=== PATIENT | female | born 1940 | race Two or more races ===

== ENCOUNTER 2017-02-16 11:21 | Inpatient (IN) | payer MEDICARE, MEDICAID ==
[~2017-02-16] VITALS: Ht 165.1 cm; Wt 73.4 kg
[~2017-02-16 11:21] MED LIST: ACET-285 PO; GLIP-115 PO; LANS30CA63 PO; LIDO5DIS21 TOP; LISI2.5T47 PO; METF-372 PO; RIVA20TA PO; SIMV-8 PO; TRAM-297 PO; URSO300C4 PO
[2017-02-16 12:22] LABS: Basophils # (auto) 0 uL; Basophils % (auto) 0.3 % (0.0-2.0); CONDITION Y; Eosinophils # (auto) 0.1 uL; Eosinophils % (auto) 2.1 % (0.0-7.0); Hemoglobin 12.6 g/dL (12.2-16.2); Lymphocytes # (auto) 1.4 uL; Lymphocytes % (auto) 27.6 % (10.0-50.0); Mean Corpuscular Hgb Conc. 33.3 g/dL (32.0-36.0); Mean Corpuscular Volume 83.9 fL (80.0-100.0); Mean Platelet Volume 8.9 fL (7.4-10.4); Monocytes # (auto) 0.5 uL; Monocytes % (auto) 9.3 % (0.0-12.0); Neutrophils # (auto) 3.1 uL; Neutrophils % (auto) 60.7 % (37.0-80.0); Platelet Count (auto) 299 10^3/uL (140-450); Red Cell Distribution Width 16.4 % (11.6-16.0); White Blood Cell 5.1 10^3/uL (4.4-10.8)
[2017-02-16 12:55] LABS: Albumin 3.9 g/dL (3.4-5.0); BUN/Creatinine Ratio 27.5; Bilirubin, Total 0.4 mg/dL (0.2-1.0); Calcium 9.4 mg/dL (8.5-10.1); Potassium 4.5 mmol/L (3.5-5.1); Total Protein 7.6 g/dL (6.4-8.2)
[2017-02-16] MEDS ORDERED: SODIUM CHLORIDE 0.9% 1,000 ML IV ONE ×2 (16:56)
[2017-02-16] MEDS ORDERED: HYDROmorphone HCL 2 MG/ML VL IV ONE (17:00)
[2017-02-16] MEDS ORDERED: ONDANSETRON HCL 4 MG/2 ML VIAL IV ONE (17:00)
[2017-02-16] MEDS ORDERED: DEXTROSE (50%) 50ML SYRG IV PRN (18:30)
[2017-02-16] MEDS ORDERED: ONDANSETRON HCL 4 MG/2 ML VIAL IV PRN (18:45)
[2017-02-16] MEDS ORDERED: DOCUSATE SOD 100 MG CAP PO PRN (18:45)
[2017-02-16] MEDS ORDERED: MORPHINE SULF INJ 2 MG/ML SYRINGE 1ML IV PRN (18:45)
[2017-02-16] MEDS ORDERED: TEMAZEPAM 15 MG CAP PO PRN (18:45)
[2017-02-16] MEDS ORDERED: ACETAMINOPHEN 325 MG TAB PO PRN (18:45)
[2017-02-16 19:33] LABS: Urine Bilirubin Negative (Negative); Urine Blood Negative /uL (Negative); Urine Color Yellow (Yellow); Urine Glucose Normal (Normal); Urine Ketone Negative (Negative); Urine Nitrite Negative (Negative); Urine RBC <1 /hpf (0 - 4); Urine Urobilinogen Normal (Negative)
[2017-02-16 19:54] LABS: INR 1.09 (0.9-1.15); Prothrombin Time 11.9 sec (9.37-12.3)
[2017-02-16] MEDS: InsuLIN REG 1unit/0.01ml Soln (100units/ml) SC SCH (22:00)
[2017-02-16] MEDS: ACCU-CHEK COMFORT CURVE STRIP VI SCH (22:00)
[2017-02-16] MEDS: FAMOTIDINE 20 MG TAB PO SCH (23:23)
[2017-02-16] MEDS: SODIUM CHLOR 0.9% PF (SALINE LOCK) 10ML VIAL IV SCH (23:24)
[2017-02-16] MEDS: ATORVASTATIN 20 MG TAB PO SCH (23:24)
[2017-02-16 23:30] VITALS: BP 132/60
[2017-02-16] MEDS: HYDROcodone-ACET 5/325MG TAB PO PRN (23:38)
[2017-02-17] VITALS (7 sets, daily range): BP systolic 115–135; BP diastolic 58–72
[2017-02-17 06:05] LABS: Basophils # (auto) 0 uL; Basophils % (auto) 0.2 % (0.0-2.0); CONDITION Y; Eosinophils # (auto) 0.1 uL; Eosinophils % (auto) 2.7 % (0.0-7.0); Hematocrit 35.3 % (36.0-46.0); Hemoglobin 11.6 g/dL (12.2-16.2); Lymphocytes # (auto) 1.7 uL; Lymphocytes % (auto) 36.1 % (10.0-50.0); Mean Corpuscular Hgb Conc. 32.9 g/dL (32.0-36.0); Mean Platelet Volume 9.3 fL (7.4-10.4); Monocytes # (auto) 0.5 uL; Monocytes % (auto) 11.1 % (0.0-12.0); Neutrophils # (auto) 2.3 uL; Neutrophils % (auto) 49.9 % (37.0-80.0); Platelet Count (auto) 241 10^3/uL (140-450); Red Cell Distribution Width 16.1 % (11.6-16.0); White Blood Cell 4.6 10^3/uL (4.4-10.8)
[2017-02-17] MEDS: SODIUM CHLOR 0.9% PF (SALINE LOCK) 10ML VIAL IV SCH ×3 (06:20→21:44)
[2017-02-17] MEDS: ACCU-CHEK COMFORT CURVE STRIP VI SCH ×4 (06:44→21:44)
[2017-02-17] MEDS: glipiZIDE 5 MG TAB PO SCH (06:44)
[2017-02-17] MEDS: InsuLIN REG 1unit/0.01ml Soln (100units/ml) SC SCH ×4 (06:44→21:44)
[2017-02-17 06:46] LABS: Albumin 3.1 g/dL (3.4-5.0); BUN/Creatinine Ratio 32.4; Bilirubin, Total 0.4 mg/dL (0.2-1.0); Calcium 8.4 mg/dL (8.5-10.1); Potassium 3.9 mmol/L (3.5-5.1); Total Protein 6.2 g/dL (6.4-8.2)
[2017-02-17] MEDS: MULTIPLE VITAMIN TAB PO SCH (10:06)
[2017-02-17] MEDS: FAMOTIDINE 20 MG TAB PO SCH ×2 (10:06→21:43)
[2017-02-17] MEDS: LISINOPRIL 5 MG TAB PO SCH (10:08)
[2017-02-17] MEDS ORDERED: LORazepam 0.5 MG TAB PO PRN (17:30)
[2017-02-17] MEDS: ATORVASTATIN 20 MG TAB PO SCH (21:43)
[2017-02-17] MEDS: HYDROcodone-ACET 5/325MG TAB PO PRN (21:44)
[2017-02-18 05:30] VITALS: BP 125/60
[2017-02-18] MEDS: SODIUM CHLOR 0.9% PF (SALINE LOCK) 10ML VIAL IV SCH (05:33)
[2017-02-18] MEDS: glipiZIDE 5 MG TAB PO SCH (06:39)
[2017-02-18] MEDS: ACCU-CHEK COMFORT CURVE STRIP VI SCH ×2 (06:39→11:52)
[2017-02-18] MEDS: InsuLIN REG 1unit/0.01ml Soln (100units/ml) SC SCH ×2 (06:39→12:04)
[2017-02-18 08:00] VITALS: BP 131/69
[2017-02-18 09:01] VITALS: BP 131/69
[2017-02-18] MEDS: MULTIPLE VITAMIN TAB PO SCH (11:41)
[2017-02-18] MEDS: FAMOTIDINE 20 MG TAB PO SCH (11:41)
[2017-02-18] MEDS: HYDROcodone-ACET 5/325MG TAB PO PRN (11:42)
[2017-02-18] MEDS: LISINOPRIL 5 MG TAB PO SCH (11:43)
[2017-02-18 12:10] VITALS: BP 125/71
== END 2017-02-18 13:30 | disposition home or self-care (01) | DRG 382 ==
LOC: ER 11:21 → OVERFLOW 11:22 → WEST WING 22:50
PROVIDERS: ADMIT Internal Medicine; ATTEND Internal Medicine
DX: C50.312 Malignant neoplasm of lower-inner quadrant of left female breast (principal); I11.9 Hypertensive heart disease without heart failure; E11.9 Type 2 diabetes mellitus without complications; E07.89 Other specified disorders of thyroid; N64.4 Mastodynia; E78.5 Hyperlipidemia, unspecified; Z79.899 Other long term (current) drug therapy; Z85.3 Personal history of malignant neoplasm of breast; Z79.84 Long term (current) use of oral hypoglycemic drugs; Z83.3 Family history of diabetes mellitus; Z90.49 Acquired absence of other specified parts of digestive tract
CPT/HCPCS: 36415; 71250; 80053; 81001; 82962; 83036; 84443; 85025; 85610; 86304; 96360; J1815

== ENCOUNTER 2018-03-12 08:55 | Emergency (ER) | payer MEDICARE, MEDICAID ==
[~2018-03-12] VITALS: Ht 160 cm; Wt 68.9 kg
[2018-03-12 09:51] LABS: Basophils # (auto) 0 uL; Basophils % (auto) 0.6 % (0.0-2.0); Eosinophils # (auto) 0.1 uL; Eosinophils % (auto) 1.2 % (0.0-7.0); Hematocrit 39.5 % (36.0-46.0); Hemoglobin 13.1 g/dL (12.2-16.2); Lymphocytes # (auto) 1.3 uL; Lymphocytes % (auto) 27.8 % (10.0-50.0); Mean Corpuscular Hemoglobin 28.8 pg (28.0-32.0); Mean Corpuscular Hgb Conc. 33.2 g/dL (32.0-36.0); Mean Corpuscular Volume 86.7 fL (80.0-100.0); Monocytes # (auto) 0.5 uL; Monocytes % (auto) 10.1 % (0.0-12.0); Neutrophils # (auto) 2.8 uL; Neutrophils % (auto) 60.3 % (37.0-80.0); Nucleated Red Blood Cells % 0.1 %; Platelet Count (auto) 225 10^3/uL (140-450); Red Blood Cells 4.56 10^6/uL (4.0-5.20); Red Cell Distribution Width 15.3 % (11.8-14.3); White Blood Cell 4.7 10^3/uL (4.4-10.8)
[2018-03-12 10:02] LABS: Albumin 3.7 g/dL (3.4-5.0); Bilirubin, Total 0.5 mg/dL (0.2-1.0); Calcium 8.8 mg/dL (8.5-10.1); Potassium 4.1 mmol/L (3.5-5.1); Total Protein 7.2 g/dL (6.4-8.2)
[2018-03-12 10:11] LABS: Urine Bacteria NONE SEEN /hpf (None Seen); Urine Blood Negative /uL (Negative); Urine Mucus FEW (None Seen); Urine Specific Gravity 1.021 (1.001-1.035); Urine WBC 5 /hpf (0 - 5)
[2018-03-12 11:40] VITALS: BP 127/57
== END 2018-03-12 12:10 | disposition home or self-care (01) ==
LOC: ER 08:55
DX: N39.0 Urinary tract infection, site not specified (principal); G62.9 Polyneuropathy, unspecified; M19.90 Unspecified osteoarthritis, unspecified site; I10 Essential (primary) hypertension; E78.5 Hyperlipidemia, unspecified; E11.9 Type 2 diabetes mellitus without complications; Z90.49 Acquired absence of other specified parts of digestive tract; Z79.899 Other long term (current) drug therapy; Z79.84 Long term (current) use of oral hypoglycemic drugs
CPT/HCPCS: 36415; 80053; 81001; 85025; 93005

== ENCOUNTER → 2018-07-29 | Outpatient (CLI) | payer MEDICARE, MEDICAID ==
[~2018-07-29] MED LIST changes: +PANT40TA2 PO; +SITA50TA PO
[2018-07-29 12:38] LABS: Basophils # (auto) 0.1 uL; Basophils % (auto) 0.9 % (0.0-2.0); Eosinophils # (auto) 0.1 uL; Eosinophils % (auto) 1.2 % (0.0-7.0); Hematocrit 41.9 % (36.0-46.0); Hemoglobin 13.7 g/dL (12.2-16.2); Lymphocytes # (auto) 1.7 uL; Mean Corpuscular Hemoglobin 28.7 pg (28.0-32.0); Mean Corpuscular Hgb Conc. 32.8 g/dL (32.0-36.0); Mean Corpuscular Volume 87.4 fL (80.0-100.0); Monocytes # (auto) 0.5 uL; Monocytes % (auto) 7.8 % (0.0-12.0); Neutrophils # (auto) 3.7 uL; Neutrophils % (auto) 62.1 % (37.0-80.0); Platelet Count (auto) 268 10^3/uL (140-450); Red Blood Cells 4.79 10^6/uL (4.0-5.20); Red Cell Distribution Width 13.8 % (11.8-14.3)
[2018-07-29 13:18] LABS: Albumin 3.8 g/dL (3.4-5.0); Potassium 4.1 mmol/L (3.5-5.1)
[2018-07-29 13:21] LABS: BUN/Creatinine Ratio 26.5; Bilirubin, Total 0.3 mg/dL (0.2-1.0); Total Protein 7.5 g/dL (6.4-8.2)
== END | disposition home or self-care (01) ==
LOC: LAB 12:09
PROVIDERS: ATTEND Internal Medicine
DX: C50.212 Malignant neoplasm of upper-inner quadrant of left female breast (principal)
CPT/HCPCS: 36415; 80053; 83615; 85025; 86300

== ENCOUNTER 2018-08-09 18:25 | Inpatient (IN) | payer MEDICARE, MEDICAID | END 2018-08-14 15:30 | disposition home or self-care (01) | LOC: TELE-EAST 08-11 09:51 → ER 18:25 → TELE-EAST 08-14 09:00 → OVERFLOW 23:05 → EAST 08-10 21:21 | PROC: 0DJD8ZZ Inspection of Lower Intestinal Tract, Via Natural or Artificial Opening Endoscopic (ICD-10-PCS; principal; 2018-08-13 10:40) | DX: A41.9 Sepsis, unspecified organism (principal); E11.65 Type 2 diabetes mellitus with hyperglycemia; D70.1 Agranulocytosis secondary to cancer chemotherapy; E87.1 Hypo-osmolality and hyponatremia; K57.32 Diverticulitis of large intestine without perforation or abscess without bleeding; C50.912 Malignant neoplasm of unspecified site of left female breast; N28.1 Cyst of kidney, acquired; R10.9 Unspecified abdominal pain; D25.9 Leiomyoma of uterus, unspecified; K52.9 Noninfective gastroenteritis and colitis, unspecified; I10 Essential (primary) hypertension; T45.1X5A Adverse effect of antineoplastic and immunosuppressive drugs, initial encounter ==

== ENCOUNTER → 2018-08-16 | Outpatient (CLI) | payer MEDICARE, MEDICAID ==
[~2018-08-16] MED LIST changes: -ACET-285 PO; -LANS30CA63 PO; -LIDO5DIS21 TOP; -TRAM-297 PO; -URSO300C4 PO
[2018-08-16 10:41] LABS: Hematocrit 34.9 % (36.0-46.0); Hemoglobin 11.6 g/dL (12.2-16.2); Mean Corpuscular Hemoglobin 29.1 pg (28.0-32.0); Mean Corpuscular Hgb Conc. 33.1 g/dL (32.0-36.0); Mean Corpuscular Volume 87.8 fL (80.0-100.0); Platelet Count (auto) 142 10^3/uL (140-450); Red Blood Cells 3.97 10^6/uL (4.0-5.20); Red Cell Distribution Width 14.5 % (11.8-14.3); White Blood Cell 5.3 10^3/uL (4.4-10.8)
[2018-08-16 11:07] LABS: Basophils % (manual) 0 (0.0-2.0); Blast Cells 0; Eosinophils % (manual) 0 (0-7); Promyelocytes % 0
[2018-08-16 11:41] LABS: Chloride 104 mmol/L (98-107); Potassium 3.8 mmol/L (3.5-5.1); Sodium 135 mmol/L (136-145)
[2018-08-16 11:53] LABS: Alanine Aminotransferase 17 U/L (13-56); Albumin 2.6 g/dL (3.4-5.0); Alkaline Phosphatase 71 U/L (45-117); Anion Gap 7 (5-15); Aspartate Aminotransferase 18 U/L (15-37); BUN/Creatinine Ratio 12.5; Bilirubin, Total 0.3 mg/dL (0.2-1.0); Blood Urea Nitrogen 7 mg/dL (7-18); Calcium 7.9 mg/dL (8.5-10.1); Carbon Dioxide 24 mmol/L (21-32); GFR African American > 60 mL/min; GFR Non-African American > 60 mL/min; Glucose 325 mg/dL (74-106); Lactate Dehydrogenase 231 U/L (84-246); Total Protein 5.5 g/dL (6.4-8.2)
[2018-08-16 14:05] LABS: Band Neutrophils % (manual) 7; Lymphocytes % (manual) 29 (10.0-50.0); Metamyelocytes % 4; Monocytes % (manual) 17 (0-12); Myelocytes % 2; Reactive Lymphocytes 1
== END | disposition home or self-care (01) ==
LOC: LAB 09:39
PROVIDERS: ATTEND Internal Medicine
DX: C50.212 Malignant neoplasm of upper-inner quadrant of left female breast (principal)
CPT/HCPCS: 36415; 80053; 83615; 85007; 85027

== ENCOUNTER → 2018-08-24 | Outpatient (CLI) | payer MEDICARE, MEDICAID ==
[2018-08-24 10:12] LABS: Basophils # (auto) 0 uL; Eosinophils # (auto) 0 uL; Eosinophils % (auto) 0.1 % (0.0-7.0); Hematocrit 38.3 % (36.0-46.0); Hemoglobin 12.8 g/dL (12.2-16.2); Lymphocytes # (auto) 0.7 uL; Lymphocytes % (auto) 16.4 % (10.0-50.0); Mean Corpuscular Hemoglobin 29.5 pg (28.0-32.0); Mean Corpuscular Hgb Conc. 33.4 g/dL (32.0-36.0); Mean Corpuscular Volume 88.3 fL (80.0-100.0); Monocytes # (auto) 0.3 uL; Monocytes % (auto) 7.7 % (0.0-12.0); Neutrophils # (auto) 3.4 uL; Neutrophils % (auto) 74.8 % (37.0-80.0); Platelet Count (auto) 418 10^3/uL (140-450); Red Blood Cells 4.34 10^6/uL (4.0-5.20); White Blood Cell 4.5 10^3/uL (4.4-10.8)
[2018-08-24 12:38] LABS: Chloride 103 mmol/L (98-107); Potassium 4.8 mmol/L (3.5-5.1); Sodium 137 mmol/L (136-145)
[2018-08-24 12:46] LABS: Alanine Aminotransferase 22 U/L (13-56); Albumin 3.2 g/dL (3.4-5.0); Alkaline Phosphatase 52 U/L (45-117); Anion Gap 7 (5-15); Aspartate Aminotransferase 19 U/L (15-37); BUN/Creatinine Ratio 25.5; Bilirubin, Total 0.3 mg/dL (0.2-1.0); Blood Urea Nitrogen 14 mg/dL (7-18); Calcium 8.9 mg/dL (8.5-10.1); Carbon Dioxide 27 mmol/L (21-32); GFR African American > 60 mL/min; GFR Non-African American > 60 mL/min; Glucose 328 mg/dL (74-106); Lactate Dehydrogenase 182 U/L (84-246); Total Protein 6.6 g/dL (6.4-8.2)
== END | disposition home or self-care (01) ==
LOC: LAB 09:50
PROVIDERS: ATTEND Internal Medicine
DX: C50.212 Malignant neoplasm of upper-inner quadrant of left female breast (principal)
CPT/HCPCS: 36415; 80053; 83615; 85025

== ENCOUNTER → 2018-09-13 | Outpatient (CLI) | payer MEDICARE, MEDICAID ==
[2018-09-13 11:54] LABS: Basophils # (auto) 0 uL; Basophils % (auto) 0.8 % (0.0-2.0); Eosinophils # (auto) 0 uL; Eosinophils % (auto) 0.1 % (0.0-7.0); Hematocrit 37.5 % (36.0-46.0); Hemoglobin 12.3 g/dL (12.2-16.2); Lymphocytes # (auto) 0.8 uL; Lymphocytes % (auto) 15.1 % (10.0-50.0); Mean Corpuscular Hemoglobin 28.8 pg (28.0-32.0); Mean Corpuscular Hgb Conc. 32.7 g/dL (32.0-36.0); Monocytes # (auto) 0.5 uL; Monocytes % (auto) 8.6 % (0.0-12.0); Neutrophils # (auto) 4.1 uL; Neutrophils % (auto) 75.4 % (37.0-80.0); Nucleated Red Blood Cells % 0.1 %; Platelet Count (auto) 233 10^3/uL (140-450); Red Blood Cells 4.26 10^6/uL (4.0-5.20); Red Cell Distribution Width 16.7 % (11.8-14.3); White Blood Cell 5.4 10^3/uL (4.4-10.8)
[2018-09-13 12:21] LABS: Potassium 4.3 mmol/L (3.5-5.1)
[2018-09-13 12:32] LABS: Albumin 3.2 g/dL (3.4-5.0); Bilirubin, Total 0.5 mg/dL (0.2-1.0); Calcium 8.7 mg/dL (8.5-10.1); Total Protein 6.4 g/dL (6.4-8.2)
== END | disposition home or self-care (01) ==
LOC: LAB 10:58
PROVIDERS: ATTEND Internal Medicine
DX: C50.212 Malignant neoplasm of upper-inner quadrant of left female breast (principal)
CPT/HCPCS: 36415; 80053; 83615; 85025

== ENCOUNTER → 2018-10-04 | Outpatient (CLI) | payer MEDICARE, MEDICAID ==
[2018-10-04 11:39] LABS: Basophils # (auto) 0 uL; Eosinophils # (auto) 0 uL; Eosinophils % (auto) 0.1 % (0.0-7.0); Hematocrit 34.7 % (36.0-46.0); Hemoglobin 11.3 g/dL (12.2-16.2); Lymphocytes # (auto) 0.7 uL; Lymphocytes % (auto) 13.5 % (10.0-50.0); Mean Corpuscular Hemoglobin 28.5 pg (28.0-32.0); Mean Corpuscular Hgb Conc. 32.7 g/dL (32.0-36.0); Mean Corpuscular Volume 87.1 fL (80.0-100.0); Monocytes # (auto) 0.6 uL; Monocytes % (auto) 11.1 % (0.0-12.0); Neutrophils # (auto) 3.7 uL; Neutrophils % (auto) 74.3 % (37.0-80.0); Nucleated Red Blood Cells % 0.1 %; Platelet Count (auto) 192 10^3/uL (140-450); Red Blood Cells 3.98 10^6/uL (4.0-5.20); Red Cell Distribution Width 17.3 % (11.8-14.3)
[2018-10-04 11:51] LABS: Potassium 4.3 mmol/L (3.5-5.1)
[2018-10-04 12:19] LABS: Albumin 2.8 g/dL (3.4-5.0); Bilirubin, Total 0.4 mg/dL (0.2-1.0); Calcium 8.9 mg/dL (8.5-10.1); Total Protein 6.2 g/dL (6.4-8.2)
== END | disposition home or self-care (01) ==
LOC: LAB 09:30
PROVIDERS: ATTEND Internal Medicine
DX: C50.212 Malignant neoplasm of upper-inner quadrant of left female breast (principal)
CPT/HCPCS: 36415; 80053; 83615; 85025

== ENCOUNTER → 2018-10-20 | Outpatient (CLI) | payer MEDICARE, MEDICAID ==
[2018-10-20 16:11] LABS: Alanine Aminotransferase 23 U/L (13-56); Albumin 2.5 g/dL (3.4-5.0); Anion Gap 8 (5-15); Aspartate Aminotransferase 29 U/L (15-37); BUN/Creatinine Ratio 24.6; Basophils # (auto) 0 uL; Basophils % (auto) 0.2 % (0.0-2.0); Blood Urea Nitrogen 17 mg/dL (7-18); Calcium 8.5 mg/dL (8.5-10.1); Carbon Dioxide 22 mmol/L (21-32); Chloride 98 mmol/L (98-107); Eosinophils # (auto) 0 uL; Eosinophils % (auto) 0.1 % (0.0-7.0); GFR African American 106 mL/min; GFR Non-African American 88 mL/min; Glucose 332 mg/dL (74-106); Hemoglobin 12.8 g/dL (12.2-16.2); Lymphocytes # (auto) 0.7 uL; Lymphocytes % (auto) 8.3 % (10.0-50.0); Mean Corpuscular Hemoglobin 28.3 pg (28.0-32.0); Mean Corpuscular Hgb Conc. 32.8 g/dL (32.0-36.0); Mean Corpuscular Volume 86.3 fL (80.0-100.0); Monocytes # (auto) 0.5 uL; Monocytes % (auto) 6.3 % (0.0-12.0); Neutrophils # (auto) 7.3 uL; Neutrophils % (auto) 85.1 % (37.0-80.0); Platelet Count (auto) 121 10^3/uL (140-450); Potassium 5.3 mmol/L (3.5-5.1); Red Blood Cells 4.52 10^6/uL (4.0-5.20); Red Cell Distribution Width 16.9 % (11.8-14.3); Sodium 128 mmol/L (136-145); White Blood Cell 8.6 10^3/uL (4.4-10.8)
[2018-10-20 16:14] LABS: Alkaline Phosphatase 77 U/L (45-117); Bilirubin, Total 0.5 mg/dL (0.2-1.0); Total Protein 6.1 g/dL (6.4-8.2)
== END | disposition home or self-care (01) ==
LOC: LAB 15:41
PROVIDERS: ATTEND Internal Medicine
DX: C50.212 Malignant neoplasm of upper-inner quadrant of left female breast (principal)
CPT/HCPCS: 36415; 80053; 85025

== ENCOUNTER → 2018-11-09 | Outpatient (CLI) | payer MEDICARE, MEDICAID ==
[2018-11-09 10:28] LABS: Basophils # (auto) 0 uL; Basophils % (auto) 0.3 % (0.0-2.0); Eosinophils # (auto) 0.1 uL; Eosinophils % (auto) 2.2 % (0.0-7.0); Hematocrit 34.2 % (36.0-46.0); Hemoglobin 11.1 g/dL (12.2-16.2); Lymphocytes # (auto) 0.9 uL; Lymphocytes % (auto) 21.8 % (10.0-50.0); Mean Corpuscular Hemoglobin 27.6 pg (28.0-32.0); Mean Corpuscular Hgb Conc. 32.4 g/dL (32.0-36.0); Mean Corpuscular Volume 85.1 fL (80.0-100.0); Monocytes # (auto) 0.4 uL; Monocytes % (auto) 10.8 % (0.0-12.0); Neutrophils # (auto) 2.6 uL; Neutrophils % (auto) 64.9 % (37.0-80.0); Platelet Count (auto) 239 10^3/uL (140-450); Red Blood Cells 4.01 10^6/uL (4.0-5.20); Red Cell Distribution Width 16.7 % (11.8-14.3); White Blood Cell 3.9 10^3/uL (4.4-10.8)
[2018-11-09 10:52] LABS: Potassium 4.2 mmol/L (3.5-5.1)
[2018-11-09 11:06] LABS: BUN/Creatinine Ratio 31.4; Bilirubin, Total 0.4 mg/dL (0.2-1.0); Calcium 8.3 mg/dL (8.5-10.1); Total Protein 6.1 g/dL (6.4-8.2)
== END | disposition home or self-care (01) ==
LOC: LAB 09:18
PROVIDERS: ATTEND Internal Medicine
DX: C50.212 Malignant neoplasm of upper-inner quadrant of left female breast (principal)
CPT/HCPCS: 36415; 80053; 83615; 85025; 86300

== ENCOUNTER → 2018-11-18 | Outpatient (CLI) | payer MEDICARE, MEDICAID ==
[2018-11-18 11:19] LABS: Basophils # (auto) 0 uL; Lymphocytes # (auto) 0.8 uL; Monocytes # (auto) 0.4 uL; White Blood Cell 3.3 10^3/uL (4.4-10.8)
[2018-11-18 11:23] LABS: Basophils % (auto) 0.2 % (0.0-2.0); Eosinophils # (auto) 0 uL; Eosinophils % (auto) 1.5 % (0.0-7.0); Hemoglobin 11.2 g/dL (12.2-16.2); Lymphocytes % (auto) 24.7 % (10.0-50.0); Mean Corpuscular Hgb Conc. 32.1 g/dL (32.0-36.0); Mean Corpuscular Volume 84.1 fL (80.0-100.0); Monocytes % (auto) 11.2 % (0.0-12.0); Neutrophils % (auto) 62.4 % (37.0-80.0); Nucleated Red Blood Cells % 0.1 %; Platelet Count (auto) 179 10^3/uL (140-450); Red Blood Cells 4.15 10^6/uL (4.0-5.20); Red Cell Distribution Width 16.2 % (11.8-14.3)
[2018-11-18 11:51] LABS: Potassium 4.1 mmol/L (3.5-5.1)
[2018-11-18 11:57] LABS: Albumin 3.2 g/dL (3.4-5.0); Calcium 8.5 mg/dL (8.5-10.1)
[2018-11-18 12:03] LABS: BUN/Creatinine Ratio 21.2; Bilirubin, Total 0.2 mg/dL (0.2-1.0); Total Protein 6.5 g/dL (6.4-8.2)
== END | disposition home or self-care (01) ==
LOC: LAB 10:31
PROVIDERS: ATTEND Internal Medicine
DX: C50.212 Malignant neoplasm of upper-inner quadrant of left female breast (principal)
CPT/HCPCS: 36415; 80053; 83615; 85025

== ENCOUNTER → 2019-03-10 | Outpatient (CLI) | payer MEDICARE, MEDICAID ==
[~2019-03-10] MED LIST changes: +ANAS1TAB7 PO; -GLIP-115 PO; +GLIP5TAB12 PO
[2019-03-10 16:42] LABS: Basophils # (auto) 0 uL; Basophils % (auto) 0.2 % (0.0-2.0); Eosinophils # (auto) 0.1 uL; Eosinophils % (auto) 2.4 % (0.0-7.0); Hematocrit 30.1 % (36.0-46.0); Hemoglobin 10.1 g/dL (12.2-16.2); Lymphocytes # (auto) 0.8 uL; Lymphocytes % (auto) 22.4 % (10.0-50.0); Mean Corpuscular Hemoglobin 27.4 pg (28.0-32.0); Mean Corpuscular Hgb Conc. 33.4 g/dL (32.0-36.0); Mean Corpuscular Volume 82.3 fL (80.0-100.0); Monocytes # (auto) 0.3 uL; Monocytes % (auto) 9.1 % (0.0-12.0); Neutrophils # (auto) 2.4 uL; Neutrophils % (auto) 65.9 % (37.0-80.0); Nucleated Red Blood Cells % 0.1 %; Platelet Count (auto) 184 10^3/uL (140-450); Red Blood Cells 3.66 10^6/uL (4.0-5.20); Red Cell Distribution Width 18.7 % (11.8-14.3); White Blood Cell 3.6 10^3/uL (4.4-10.8)
[2019-03-10 16:57] LABS: % Iron Saturation 19.6 % (15-50); Albumin 3.6 g/dL (3.4-5.0); Calcium 8.5 mg/dL (8.5-10.1); Potassium 4.3 mmol/L (3.5-5.1)
[2019-03-10 17:00] LABS: BUN/Creatinine Ratio 28.2; Bilirubin, Total 0.3 mg/dL (0.2-1.0); Total Protein 7.1 g/dL (6.4-8.2)
[2019-03-10 17:05] LABS: Ferritin 32.3 ng/mL (10-322); Folate (Folic Acid) 21.78 ng/mL (5.38-24)
[2019-03-10 17:08] LABS: Urine Bacteria NONE SEEN /hpf (None Seen); Urine Blood 2+ /uL (Negative); Urine Specific Gravity 1.015 (1.001-1.035); Urine WBC 6 /hpf (0 - 5)
== END | disposition home or self-care (01) ==
LOC: LAB 16:11
PROVIDERS: ATTEND Internal Medicine
DX: C50.212 Malignant neoplasm of upper-inner quadrant of left female breast (principal)
CPT/HCPCS: 36415; 80053; 81001; 82607; 82728; 82746; 83540; 83550; 83615; 85025; 86300; 86301

== ENCOUNTER 2019-04-24 21:13 | Emergency (ER) | payer MEDICARE, MEDICAID ==
[~2019-04-24] VITALS: Ht 165.1 cm; Wt 68.9 kg
[2019-04-24 22:07] LABS: Hematocrit 33.8 % (36.0-46.0); Hemoglobin 11.4 g/dL (12.2-16.2); Mean Corpuscular Hemoglobin 29.6 pg (28.0-32.0); Mean Corpuscular Hgb Conc. 33.8 g/dL (32.0-36.0); Mean Corpuscular Volume 87.6 fL (80.0-100.0); Platelet Count (auto) 182 10^3/uL (140-450); Red Blood Cells 3.86 10^6/uL (4.0-5.20); Red Cell Distribution Width 17.6 % (11.8-14.3); White Blood Cell 2.8 10^3/uL (4.4-10.8)
[2019-04-24 22:09] LABS: Basophils % (manual) 0 (0.0-2.0); Blast Cells 0; Metamyelocytes % 0; Myelocytes % 0; Promyelocytes % 0; Reactive Lymphocytes 0
[2019-04-24 22:18] LABS: INR 1.01 (0.9-1.15)
[2019-04-24 22:23] LABS: Anion Gap 10 (5-15); Blood Urea Nitrogen 28 mg/dL (7-18); Calcium 9.5 mg/dL (8.5-10.1); Carbon Dioxide 26 mmol/L (21-32); Chloride 103 mmol/L (98-107); Glucose 158 mg/dL (74-106); Magnesium 1.7 mg/dL (1.6-2.6); Potassium 4.5 mmol/L (3.5-5.1); Sodium 139 mmol/L (136-145)
[2019-04-24 22:24] LABS: Urine Amorphous Crystal FEW /hpf (None Seen); Urine Bacteria FEW /hpf (None Seen); Urine Blood 3+ /uL (Negative); Urine Specific Gravity 1.013 (1.001-1.035); Urine WBC 3 /hpf (0 - 5)
[2019-04-24 22:29] LABS: Alanine Aminotransferase 34 U/L (13-56); Alkaline Phosphatase 47 U/L (45-117); Aspartate Aminotransferase 22 U/L (15-37); BUN/Creatinine Ratio 20.7; Bilirubin, Total 0.4 mg/dL (0.2-1.0); GFR African American 49 mL/min; GFR Non-African American 40 mL/min; Total Protein 7.2 g/dL (6.4-8.2)
[2019-04-24 22:43] LABS: Band Neutrophils % (manual) 2; Eosinophils % (manual) 2 (0-7); Lymphocytes % (manual) 21 (10.0-50.0); Monocytes % (manual) 17 (0-12)
[2019-04-25] MEDS ORDERED: MORPHINE SULFATE 4 MG/ML SYR/VIAL IM ONE (02:30)
[2019-04-25] MEDS ORDERED: ONDANSETRON ODT 4 MG TAB PO ONE (02:30)
[2019-04-25 02:51] VITALS: BP 142/58
[2019-04-25] MEDS ORDERED: HYDROcodone-ACET 5/325MG TAB PO ONE (03:00)
== END 2019-04-25 03:24 | disposition home or self-care (01) ==
LOC: ER 21:13
DX: B02.9 Zoster without complications (principal); M19.90 Unspecified osteoarthritis, unspecified site; E11.9 Type 2 diabetes mellitus without complications; K21.9 Gastro-esophageal reflux disease without esophagitis; E78.5 Hyperlipidemia, unspecified; I10 Essential (primary) hypertension; Z88.5 Allergy status to narcotic agent; Z79.899 Other long term (current) drug therapy; Z79.84 Long term (current) use of oral hypoglycemic drugs; Z90.49 Acquired absence of other specified parts of digestive tract
CPT/HCPCS: 36415; 70450; 71046; 80053; 81001; 83735; 84484; 85007; 85027; 85610; 85730; 93005; 99284; J2270; Q0162

== ENCOUNTER 2019-07-02 02:46 | Emergency (ER) | payer MEDICARE, MEDICAID ==
[~2019-07-02] VITALS: Ht 165.1 cm; Wt 72.6 kg
[2019-07-02 03:05] VITALS: BP 140/63
== END 2019-07-02 05:53 | disposition left against medical advice (07) ==
LOC: ER 02:50
DX: R11.10 Vomiting, unspecified (principal); R42 Dizziness and giddiness; Z53.21 Procedure and treatment not carried out due to patient leaving prior to being seen by health care provider
CPT/HCPCS: 93005

== ENCOUNTER → 2019-07-19 | Outpatient (CLI) | payer MEDICARE, MEDICAID ==
[2019-07-19 13:55] LABS: Basophils # (auto) 0 uL; Basophils % (auto) 0.2 % (0.0-2.0); Eosinophils # (auto) 0.1 uL; Eosinophils % (auto) 1.9 % (0.0-7.0); Hematocrit 34.6 % (36.0-46.0); Hemoglobin 11.7 g/dL (12.2-16.2); Lymphocytes # (auto) 0.8 uL; Lymphocytes % (auto) 20.4 % (10.0-50.0); Mean Corpuscular Hemoglobin 31.7 pg (28.0-32.0); Mean Corpuscular Hgb Conc. 33.7 g/dL (32.0-36.0); Mean Corpuscular Volume 93.9 fL (80.0-100.0); Monocytes # (auto) 0.4 uL; Monocytes % (auto) 8.9 % (0.0-12.0); Neutrophils # (auto) 2.9 uL; Neutrophils % (auto) 68.6 % (37.0-80.0); Platelet Count (auto) 273 10^3/uL (140-450); Red Blood Cells 3.68 10^6/uL (4.0-5.20); Red Cell Distribution Width 14.1 % (11.8-14.3); White Blood Cell 4.2 10^3/uL (4.4-10.8)
[2019-07-19 14:43] LABS: Potassium 4.1 mmol/L (3.5-5.1)
[2019-07-19 14:53] LABS: Albumin 3.6 g/dL (3.4-5.0); BUN/Creatinine Ratio 27.1; Bilirubin, Total 0.3 mg/dL (0.2-1.0); Calcium 9.3 mg/dL (8.5-10.1); Total Protein 7.5 g/dL (6.4-8.2)
== END | disposition home or self-care (01) ==
LOC: LAB 13:09
PROVIDERS: ATTEND Internal Medicine
DX: C50.212 Malignant neoplasm of upper-inner quadrant of left female breast (principal)
CPT/HCPCS: 36415; 80053; 83615; 85025; 86300

== ENCOUNTER → 2019-12-06 | Outpatient (CLI) | payer MEDICARE, MEDICAID ==
[2019-12-06 13:41] LABS: Basophils # (auto) 0 10 ^3/uL (0-0.2); Basophils % (auto) 0.3 % (0.0-2.0); Eosinophils # (auto) 0.1 10 ^3/uL (0-0.8); Eosinophils % (auto) 1.1 % (0.0-7.0); Hematocrit 37.9 % (36.0-46.0); Hemoglobin 12.2 g/dL (12.2-16.2); Lymphocytes # (auto) 1.1 10 ^3/uL (0.4-5.4); Lymphocytes % (auto) 22.1 % (10.0-50.0); Mean Corpuscular Hemoglobin 29.5 pg (28.0-32.0); Mean Corpuscular Hgb Conc. 32.3 g/dL (32.0-36.0); Mean Corpuscular Volume 91.3 fL (80.0-100.0); Monocytes # (auto) 0.4 10 ^3/uL (0-1.3); Monocytes % (auto) 8.3 % (0.0-12.0); Neutrophils # (auto) 3.3 10 ^3/uL (1.6-8.6); Neutrophils % (auto) 68.2 % (37.0-80.0); Platelet Count (auto) 209 10^3/uL (140-450); Red Blood Cells 4.15 10^6/uL (4.0-5.20); Red Cell Distribution Width 13.8 % (11.8-14.3); White Blood Cell 4.9 10^3/uL (4.4-10.8)
[2019-12-06 14:48] LABS: Albumin 3.6 g/dL (3.4-5.0); Calcium 9.3 mg/dL (8.5-10.1); Potassium 4.3 mmol/L (3.5-5.1)
[2019-12-06 14:51] LABS: BUN/Creatinine Ratio 27.3; Bilirubin, Total 0.4 mg/dL (0.2-1.0); Total Protein 7.1 g/dL (6.4-8.2)
== END | disposition home or self-care (01) ==
LOC: LAB 13:25
PROVIDERS: ATTEND Internal Medicine
DX: C50.212 Malignant neoplasm of upper-inner quadrant of left female breast (principal)
CPT/HCPCS: 36415; 80053; 83615; 85025; 86300

== ENCOUNTER 2021-09-23 14:05 | Emergency (ER) | payer MEDICARE, MEDICAID ==
[~2021-09-23] VITALS: Ht 162.6 cm; Wt 65.3 kg
[2021-09-23 14:30] VITALS: BP 136/61
== END 2021-09-23 17:05 | disposition left against medical advice (07) ==
LOC: ER 14:05
DX: M79.662 Pain in left lower leg (principal); M79.661 Pain in right lower leg; Z53.21 Procedure and treatment not carried out due to patient leaving prior to being seen by health care provider

== ENCOUNTER 2021-10-06 18:30 | Emergency (ER) | payer MEDICARE, MEDICAID ==
[~2021-10-06] VITALS: Ht 162.6 cm; Wt 72.6 kg
[2021-10-06 18:32] VITALS: BP 137/73
== END 2021-10-06 23:01 | disposition home or self-care (01) ==
LOC: ER 18:32
DX: S16.1XXA Strain of muscle, fascia and tendon at neck level, initial encounter (principal); S00.83XA Contusion of other part of head, initial encounter; E11.9 Type 2 diabetes mellitus without complications; K21.9 Gastro-esophageal reflux disease without esophagitis; E78.5 Hyperlipidemia, unspecified; I10 Essential (primary) hypertension; Z90.49 Acquired absence of other specified parts of digestive tract; W18.39XA Other fall on same level, initial encounter; Y93.89 Activity, other specified; Y92.89 Other specified places as the place of occurrence of the external cause; Y99.8 Other external cause status
CPT/HCPCS: 70450; 72125; 93005

== ENCOUNTER 2022-07-22 09:07 | Emergency (ER) | payer MEDICARE, MEDICAID ==
[~2022-07-22] VITALS: Ht 157.5 cm; Wt 65.5 kg
[2022-07-22] MEDS ORDERED: ACETAMINOPHEN 500 MG TAB PO ONE (10:15)
[2022-07-22] MEDS ORDERED: KETOROLAC TROMETH 30 MG/ML 1ML VIAL IM ONE (11:45)
[2022-07-22 12:57] VITALS: BP 108/60
[2022-07-22] MEDS ORDERED: IBUP600T28 PO (13:58)
[2022-07-22] MEDS ORDERED: LIDO5DIS21 TOP (13:59)
== END 2022-07-22 14:14 | disposition home or self-care (01) ==
LOC: ER 09:07
DX: S83.92XA Sprain of unspecified site of left knee, initial encounter (principal); M51.36 Other intervertebral disc degeneration, lumbar region; E11.8 Type 2 diabetes mellitus with unspecified complications; K21.9 Gastro-esophageal reflux disease without esophagitis; I10 Essential (primary) hypertension; Z88.5 Allergy status to narcotic agent; Z79.899 Other long term (current) drug therapy; Z79.84 Long term (current) use of oral hypoglycemic drugs; Z90.49 Acquired absence of other specified parts of digestive tract; W19.XXXA Unspecified fall, initial encounter; Y93.89 Activity, other specified; Y92.89 Other specified places as the place of occurrence of the external cause; Y99.8 Other external cause status
CPT/HCPCS: 72110; 72131; 73562; 93971; 96372; 99284; J1885

== ENCOUNTER 2023-04-28 20:51 | Emergency (ER) | payer MEDICARE, MEDICAID ==
[~2023-04-28] VITALS: Ht 165.1 cm; Wt 70.4 kg
[~2023-04-28 20:51] MED LIST changes: +IBUP1TAB5 PO; +LIDO5DIS21 TOP; -SIMV-8 PO; +SIMV20TA20 PO
[2023-04-28 20:53] VITALS: BP 129/72; PULSE 88; RESP 18; O2SAT 98
[2023-04-28 21:53] LABS: Basophils # (auto) 0 10 ^3/uL (0-0.2); Eosinophils # (auto) 0.1 10 ^3/uL (0-0.8); Lymphocytes # (auto) 1.8 10 ^3/uL (0.4-5.4); Neutrophils # (auto) 3.5 10 ^3/uL (1.6-8.6); White Blood Cell 6.1 10^3/uL (4.4-10.8)
[2023-04-28 21:56] LABS: Basophils % (auto) 0.3 % (0.0-2.0); Eosinophils % (auto) 1.9 % (0.0-7.0); Hemoglobin 11.9 g/dL (12.2-16.2); Lymphocytes % (auto) 30.1 % (10.0-50.0); Mean Corpuscular Hemoglobin 27.5 pg (28.0-32.0); Mean Corpuscular Hgb Conc. 33.1 g/dL (32.0-36.0); Mean Corpuscular Volume 83.1 fL (80.0-100.0); Monocytes # (auto) 0.6 10 ^3/uL (0-1.3); Monocytes % (auto) 10.5 % (0.0-12.0); Neutrophils % (auto) 57.2 % (37.0-80.0); Red Blood Cells 4.34 10^6/uL (4.0-5.20); Red Cell Distribution Width 14.7 % (11.8-14.3)
[2023-04-28 22:00] LABS: Urine Bacteria FEW /hpf (None Seen); Urine Blood Negative /uL (Negative); Urine Clarity Clear (Clear); Urine Color Yellow (Yellow); Urine Hyaline Cast FEW /lpf (0 - 2); Urine Protein, UAD Negative (Negative); Urine Specific Gravity 1.022 (1.001-1.035); Urine Urobilinogen Normal (Negative); Urine WBC 3 /hpf (0 - 5); Urine pH 5.5 (5.0-8.0)
[2023-04-28 22:15] LABS: Alanine Aminotransferase 23 U/L (7-40); Albumin 4.1 g/dL (3.2-4.8); Alkaline Phosphatase 59 U/L (46-116); Anion Gap 4 (5-15); Aspartate Aminotransferase 11 U/L (13-40); BUN/Creatinine Ratio 26.6 (10.0-20.0); Bilirubin, Total 0.4 mg/dL (0.2-1.0); Blood Urea Nitrogen 25 mg/dL (9-23); Calcium 9.7 mg/dL (8.7-10.4); Carbon Dioxide 27 mmol/L (20-30); Chloride 103 mmol/L (98-107); Glucose 341 mg/dL (74-106); Lipase 47 U/L (12-53); Potassium 4.6 mmol/L (3.5-5.1); Sodium 134 mmol/L (136-145); Total Protein 6.6 g/dL (5.7-8.2)
== END 2023-04-29 00:14 | disposition left against medical advice (07) ==
LOC: ER 20:51
DX: R10.10 Upper abdominal pain, unspecified (principal); R11.2 Nausea with vomiting, unspecified; K21.9 Gastro-esophageal reflux disease without esophagitis; Z53.21 Procedure and treatment not carried out due to patient leaving prior to being seen by health care provider
CPT/HCPCS: 36415; 80053; 81001; 83690; 85025

== ENCOUNTER 2024-06-09 14:03 | Emergency (ER) | payer MEDICARE, MEDICAID ==
[~2024-06-09] VITALS: Ht 165.1 cm; Wt 63.4 kg
[~2024-06-09 14:03] MED LIST changes: -GLIP5TAB12 PO; +GLIP5TAB21 PO
--- NOTE | 2024-06-09 14:15 | ED.PDOC ---
History of Present Illness HPI Comments A 84 YEAR OLD FEMALE BROUGHT IN BY DAUGHTER PRESENTS TO THE ED WITH CHIEF COMPLAINT OF HYPERGLYCEMIA. DAUGHTER REPORTS THAT THE PATIENT HAD ROUTINE BLOOD WORK PERFORMED YESTERDAY AND RECEIVED A CALL FROM HER PCP TODAY NOTING THAT HER GLUCOSE WAS AT 407. DAUGHTER RELAYS THAT SHE WAS ADVISED TO COME INTO THE ED FOR FURTHER EVALUATION OF THE PATIENT. PATIENT STATES SHE FELT DIZZY YESTERDAY THAT HAS SINCE RESOLVED, BUT SHE HAS BEEN EXPERIENCING FREQUENT URINATION LATELY. PATIENT DENIES SOB, DIZZINESS, HEADACHE, FEVER, CHILLS, CHEST PAIN, SOB, NAUSEA, VOMITING AND OTHER COMPLAINTS. PT IS ALERT, ORIENTATION X4 WITH NORMAL GAIT. NO OTHER SYMPTOMS REPORTED AT THIS TIME OF CARE. Time Seen by MD: 14:11 Primary Care Provider: MAX Reviewed Notes: Nurses Notes, Medications, Allergies Allergies: Coded Allergies: Morphine (Verified Allergy, Severe, 08/10/18) Home Meds Active Scripts Lidocaine (LIDODERM 5% TOPICAL PATCH) 1 Patch Ph, 1 PATCH TOP DAILY PRN, #30 P ATCH 1 Refill Prov:HAIDER BETTS [facility] 07/22/22 Ibuprofen Micronized (Ibuprofen) 600 Mg Tab, 400 MG PO Q8HPRN PRN, #30 TAB 0 Refills Prov:HAIDER BETTS [facility] 07/22/22 Reported Medications Anastrozole (Anastrozole) 1 Mg Tab, 1 TAB PO DAILY, #30 TAB 5 Refills 02/01/19 Sitagliptin Phosphate (Januvia) 50 Mg Tab, 1 TAB PO DAILY, #30 TAB 5 Refills 08/11/18 Pantoprazole Sodium Sesquihydr (Protonix) 40 Mg Tab, 40 MG PO DAILY, #30 TAB 08/11/18 Rivaroxaban (XARELTO) 20 Mg Tab, 1 TAB PO DAILY, #30 TAB 11 Refills 06/03/15 Metformin Hydrochloride (Metformin Hcl) 1,000 Mg Tab, 1 TAB PO BID, #60 TAB 5 Refills 06/03/15 Lisinopril (Lisinopril) 2.5 Mg Tab, 1 TAB PO DAILY, #30 TAB 5 Refills 06/03/15 Glipizide (Glipizide) 5 Mg Tab, 5 MG PO DAILY for 30 Days, MG 06/03/15 Simvastatin (Simvastatin) 20 Mg Tab, 20 MG PO DAILY, TAB 11/7/13 Information Source: Patient Mode of Arrival: Ambulatory Severity: Moderate Timing: Days Duration: Since onset Prehospital treatment: None Medication Refill: For: Diabetes, For: Other (POSSIBLE HYPERGLYCEMIA ) Past Medical History PAST MEDICAL HISTORY: Arthritis, Cancer, DM, GERD, High Lipids, HTN Surgical History: Cholecystectomy REEL TENDER History: No Pertinent REEL TENDER History Family History Family History: Reviewed,noncontributory to illness Social History Smoker: Non-Smoker Alcohol: Denies ETOH Use Drugs: Denies Drug Use Lives In: Home Constitutional: denies: chills, diaphoresis, fatigue, fever, malaise, sweats, weakness, others EENTM: denies: blurred vision, double vision, ear bleeding, ear discharge, ear drainage, ear pain, ear ringing, eye pain, eye redness, hearing loss, mouth pain, mouth swelling, nasal discharge, nose bleeding, nose congestion, nose pain, photophobia, tearing, throat pain, throat swelling, voice changes, others Respiratory: denies: cough, hemoptysis, orthopnea, SOB at rest, shortness of breath, SOB with excertion, stridor, wheezing, others Cardiovascular: denies: chest pain, dizzy spells, diaphoresis, Dyspnea on exertion, edema, irregular heart beat, left arm pain, lightheadedness, palpitations, PND, syncope, others Gastrointestinal: denies: abdomen distended, abdominal pain, blood streaked bowels, constipated, diarrhea, dysphagia, difficulty swallowing, hematemesis, melena, nausea, poor appetite, poor fluid intake, rectal bleeding, rectal pain, vomiting, others Genitourinary: denies: abnormal vagina bleeding, burning, dyspareunia, dysuria, flank pain, frequency, hematuria, incontinence, pain, , vagina discharge, urgency, others Neurological: reports: dizziness; denies: fainting, headache, left sided numbne ss, left sided weakness, numbness, paresthesia, pre-existing deficit, right sided numbness, right sided weakness, seizure, speech problems, tingling, tremors, weakness, others Musculoskeletal: denies: back pain, gout, joint pain, joint swelling, muscle pain, muscle stiffness, neck pain, others Integumetry: denies: bruises, change in color, change in hair/nails, dryness, laceration, lesions, lumps, rash, wounds, others Allergic/Immunocompromised: denies: Difficulty Healing, Frequent Infections, Hives, Itching, others Hematologic/Lymphatic: denies: anemia, blood clots, easy bleeding, easy bruising, swollen glands, others Endocrine: denies: excessive hunger, excessive sweating, excessive thirst, excessive urination, flushing, intolerance to cold, intolerance to heat, unexplained weight gain, unexplained weight loss, others Psychiatric: denies: anxiety, bipolar disorder, depression, hopeless, panic disorder, schizophrenia, sleepless, suicidal, others All Other Systems: Reviewed and Negative Physical Exam General Appearance: No Apparent Distress, Normal HEENT: Normal ENT Inspection, PERRL/EOMI, Pharynx Normal Neck: Full Range of Motion, Non-Tender, Normal, Normal Inspection Respiratory: Chest Non-Tender, Lungs Clear, No Accessory Muscle Use, No Respiratory Distress, Normal Breath Sounds Cardiovascular: No Edema, No JVD, No Murmur, No Gallop, Normal Peripheral Pulses, Regular Rate/Rhythm Breast Exam: Deferred Gastrointestinal: No Organomegaly, Non Tender, No Pulsatile Mass, Normal Bowel Sounds, Soft Genitalia: Deferred Pelvic: Deferred Rectal: Deferred Extremities: No calf tenderness, Normal capillary refill, Normal inspection, Normal range of motion, Non-tender, No pedal edema Musculoskeletal : Apperance: Normal Neurologic: Alert, financial planning consultant II-XII nml as Tested, No Motor Deficits, Normal Affect, Normal Mood, No Sensory Deficits Cerebellar Function: Normal Reflexes: Normal Skin: Dry, Normal Color, Warm Peripheral Pulses: 2+ carotid (R), 2+ carotid (L) Lymphatic: No Adenopathy Was a procedure done? Was a procedure done?: No Differential Dx Considerations may include: HYPERGLYCEMIA, HX OF DM X-Ray, Labs, Meds, VS Vital Signs Date Time Temp Pulse Resp B/P (MAP) Pulse Ox O2 Delivery O2 Flow Rate FiO2 06/09/24 14:50 98.2 83 18 116/56 (76) 96 98.2 06/09/24 14:50 83 18 96 Room Air 06/09/24 14:37 98.0 72 17 154/91 (112) 95 98.0 06/09/24 14:18 98.3 77 17 137/68 (91) 96 Lab Test 06/09/24 15:16 06/09/24 14:30 06/09/24 14:17 Range/Units Urine Color Light-yellow Yellow Urine Clarity Clear Clear Urine pH 5.5 5.0-9.0 Urine Specific [place] 1.012 1.001-1.035 Urine Protein Negative Negative Urine Ketones Negative Negative Urine Blood Negative Negative /uL Urine Nitrite Negative Negative Urine Bilirubin Negative Negative Urine Urobilinogen Normal Negative mg/dL Urine Leukocyte Esterase Negative Negative /uL Urine RBC <1 0 - 4 /hpf Urine WBC <1 0 - 5 /hpf Urine Squamous Epithelial Cells Few <5 /hpf Urine Bacteria None seen None Seen /hpf Urine Glucose 1+ H Normal mg/dL White Blood Count 4.9 4.4-10.8 10^3/uL Red Blood Count 4.11 4.0-5.20 10^6/uL Hemoglobin 10.9 L 12.2-16.2 g/dL Hematocrit 33.1 L 36.0-46.0 % Mean Corpuscular Volume 80.4 80.0-100.0 fL Mean Corpuscular Hemoglobin 26.6 L 28.0-32.0 pg Mean Corpuscular Hemoglobin Concent 33.0 32.0-36.0 g/dL Red Cell Distribution Width 16.8 H 11.8-14.3 % Platelet Count 309 140-450 10^3/uL Mean Platelet Volume 8.4 6.9-10.8 fL Neutrophils (%) (Auto) 53.4 37.0-80.0 % Lymphocytes (%) (Auto) 34.4 10.0-50.0 % Monocytes (%) (Auto) 9.5 0.0-12.0 % Eosinophils (%) (Auto) 2.5 0.0-7.0 % Basophils (%) (Auto) 0.2 0.0-2.0 % Neutrophils # (Auto) 2.6 1.6-8.6 10 ^3/uL Lymphocytes # (Auto) 1.7 0.4-5.4 10 ^3/uL Monocytes # (Auto) 0.5 0-1.3 10 ^3/uL Eosinophils # (Auto) 0.1 0-0.8 10 ^3/uL Basophils # (Auto) 0 0-0.2 10 ^3/uL Nucleated Red Blood Cells 0.2 % Sodium Level 133 L 136-145 mmol/L Potassium Level 4.7 3.5-5.1 mmol/L Chloride Level 102 98-107 mmol/L Carbon Dioxide Level 29 20-31 mmol/L Anion Gap 2 L 5-15 Blood Urea Nitrogen 26 H 9-23 mg/dL Creatinine 0.76 0.550-1.02 mg/dL Glomerular Filtration Rate Calc 78 >90 mL/min BUN/Creatinine Ratio 34.2 H 10.0-20.0 Serum Glucose 242 H 74-106 mg/dL Hemoglobin A1c 11.2 H <5.7 % A1C Calcium Level 9.5 8.7-10.4 mg/dL Beta-Hydroxybutyric Acid 0.116 < 0.4 mmol/L POC Glucose 251 H 70-106 mg/dl Current Medications Medications (Trade) Dose Ordered Sig/Ventura Route Start Time Stop Time Status Last Admin Sodium Chloride 1,000 ml @ 1,000 mls/hr Q1H ONCE IV 06/09/24 16:00 06/09/24 16:59 DC 06/09/24 16:04 X-Ray, Labs, Meds, VS Comment 0.9 NS 1L IV BOLUS Time of 1ST Reevaluation: 14:41 Reevaluation 1ST: Unchanged Time of 2ND Reevaluation: 17:05 Reevaluation 2ND: Improved Patient Education/Counseling: Diagnosis, Treatment, Need For Follow Up Family Education/Counseling: Diagnosis, Treatment, Need For Follow Up Medical Screening: No EMC Exist At This Time Departure 1 Departure Time of Disposition: 07:10 Impression: Primary Impression: Uncontrolled diabetes mellitus Qualified Codes: E11.65 - Type 2 diabetes mellitus with hyperglycemia Disposition: 01 HOME / SELF CARE / HOMELESS Condition: Stable Additional Instructions: FOLLOW UP WITH PCP WITHIN 1-3 DAYS. RETURN TO THE ED IF SYMPTOMS PERSIST OR WORSEN. Discharged With: Self, Relative Critical Care Note Critical Care Time?: No Stability Stability form required: No Heart Score Heart Score: Heart Score Response (Comments) Value History N/A 0 EKG N/A 0 Age N/A 0 Risk Factors N/A 0 Troponin N/A 0 Total 0 I personally scribed for MOE HELMS ([email or web address]) on 06/09/24 at 14:15. Electronically submitted by Jose Sullivan ([email or web address]). I personally scribed for MOE HELMS ([email or web address]) on 06/09/24 at 15:12. Electronically submitted by Jose Sullivan ([email or web address]). MOE HELMS Jun 09, 2024 14:15
[2024-06-09 15:04] LABS: Basophils # (auto) 0 10 ^3/uL (0-0.2); Basophils % (auto) 0.2 % (0.0-2.0); Eosinophils # (auto) 0.1 10 ^3/uL (0-0.8); Eosinophils % (auto) 2.5 % (0.0-7.0); Hematocrit 33.1 % (36.0-46.0); Hemoglobin 10.9 g/dL (12.2-16.2); Lymphocytes # (auto) 1.7 10 ^3/uL (0.4-5.4); Lymphocytes % (auto) 34.4 % (10.0-50.0); Mean Corpuscular Hemoglobin 26.6 pg (28.0-32.0); Mean Corpuscular Volume 80.4 fL (80.0-100.0); Monocytes # (auto) 0.5 10 ^3/uL (0-1.3); Monocytes % (auto) 9.5 % (0.0-12.0); Neutrophils # (auto) 2.6 10 ^3/uL (1.6-8.6); Neutrophils % (auto) 53.4 % (37.0-80.0); Nucleated Red Blood Cells % 0.2 %; Platelet Count (auto) 309 10^3/uL (140-450); Red Blood Cells 4.11 10^6/uL (4.0-5.20); Red Cell Distribution Width 16.8 % (11.8-14.3); White Blood Cell 4.9 10^3/uL (4.4-10.8)
[2024-06-09 15:13] LABS: Chloride 102 mmol/L (98-107); Potassium 4.7 mmol/L (3.5-5.1); Sodium 133 mmol/L (136-145)
[2024-06-09 15:14] LABS: Anion Gap 2 (5-15); Carbon Dioxide 29 mmol/L (20-31)
[2024-06-09 15:15] LABS: Calcium 9.5 mg/dL (8.7-10.4)
[2024-06-09 15:17] LABS: Urine Bacteria None Seen /hpf (None Seen)
[2024-06-09 15:19] LABS: Glucose 242 mg/dL (74-106)
[2024-06-09 15:20] LABS: BUN/Creatinine Ratio 34.2 (10.0-20.0); Blood Urea Nitrogen 26 mg/dL (9-23)
[2024-06-09 15:35] LABS: Urine Blood Negative /uL (Negative); Urine Clarity Clear (Clear); Urine Color Light-Yellow (Yellow); Urine Protein, UAD Negative (Negative); Urine Specific Gravity 1.012 (1.001-1.035); Urine Urobilinogen Normal (Negative); Urine WBC <1 /hpf (0 - 5); Urine pH 5.5 (5.0-9.0)
[2024-06-09] MEDS: SODIUM CHLORIDE 0.9% 1,000 ML IV ONE (16:04)
[2024-06-09 17:27] VITALS: BP 141/67; PULSE 86; RESP 18; TEMP 97.9; O2SAT 97
== END 2024-06-09 17:30 | disposition home or self-care (01) ==
LOC: ER 14:06
DX: E11.65 Type 2 diabetes mellitus with hyperglycemia (principal); I10 Essential (primary) hypertension; K21.9 Gastro-esophageal reflux disease without esophagitis; M19.90 Unspecified osteoarthritis, unspecified site; E78.5 Hyperlipidemia, unspecified; Z85.9 Personal history of malignant neoplasm, unspecified; Z90.49 Acquired absence of other specified parts of digestive tract; Z88.5 Allergy status to narcotic agent; Z79.01 Long term (current) use of anticoagulants; Z79.811 Long term (current) use of aromatase inhibitors; Z79.84 Long term (current) use of oral hypoglycemic drugs; Z79.899 Other long term (current) drug therapy
CPT/HCPCS: 36415; 80048; 81001; 82010; 82962; 83036; 85025; 96360; 99283; J7030

== ENCOUNTER 2024-09-28 15:51 | Inpatient (IN) | payer MEDICARE, MEDICAID ==
[~2024-09-28] VITALS: Ht 162.6 cm; Wt 68.1 kg
--- NOTE | 2024-09-28 16:19 | ED.PDOC ---
History of present illness HPI Comments 84y F who presents to the ED for chief complaint of hyperglycemia. Pt states she has been having elevated blood sugar since 1 days prior. Pt states she is diabetic and states despite taking her diabetes medications, she has continued to have elevated blood sugar values.Pt states the machine has been reading high for the past 1 days. Pt states she has been starting to have weakness, dizziness, headache and polydipsia. Pt states he had vomiting episodes this AM and came to the ED for further evaluation. Pt otherwise denies any other symptoms at this time. Time Seen by MD: 16:17 Primary Care Provider: GIRISH History of present illness: Nurses Notes, Medications, Allergies Allergies: Coded Allergies: Morphine (Verified Allergy, Severe, 08/10/18) Home Meds Active Scripts Lidocaine (LIDODERM 5% TOPICAL PATCH) 1 Patch Ph, 1 PATCH TOP DAILY PRN, #30 PATCH 1 Refill Prov:HAIDER BETTS [facility] 07/22/22 Ibuprofen Micronized (Ibuprofen) 600 Mg Tab, 400 MG PO Q8HPRN PRN, #30 TAB 0 Refills Prov:HAIDER BETTS [facility] 07/22/22 Reported Medications Anastrozole (Anastrozole) 1 Mg Tab, 1 TAB PO DAILY, #30 TAB 5 Refills 02/01/19 Sitagliptin Phosphate (Januvia) 50 Mg Tab, 1 TAB PO DAILY, #30 TAB 5 Refills 08/11/18 Pantoprazole Sodium Sesquihydr (Protonix) 40 Mg Tab, 40 MG PO DAILY, #30 TAB 08/11/18 Rivaroxaban (XARELTO) 20 Mg Tab, 1 TAB PO DAILY, #30 TAB 11 Refills 06/03/15 Metformin Hydrochloride (Metformin Hcl) 1,000 Mg Tab, 1 TAB PO BID, #60 TAB 5 Refills 06/03/15 Lisinopril (Lisinopril) 2.5 Mg Tab, 1 TAB PO DAILY, #30 TAB 5 Refills 06/03/15 Glipizide (Glipizide) 5 Mg Tab, 5 MG PO DAILY for 30 Days, MG 06/03/15 Simvastatin (Simvastatin) 20 Mg Tab, 20 MG PO DAILY, TAB 06/09/13 Information Source: Patient, Relative Mode of Arrival: Ambulatory Brought in by: smooth Timing: Hours Duration: Since onset Prehospital treatment: Treatment (DM meds) [place]: None History of: Diabetes, Oral hypoglycemic use Modifying factors: Other Associated signs and symptoms: Nausea, Vomiting Past Medical History PAST MEDICAL HISTORY: Arthritis, Cancer, DM, GERD, High Lipids, HTN Surgical History: Cholecystectomy HISTOPATHOLOGIST History: No Pertinent HISTOPATHOLOGIST History Family History Family History: Reviewed,noncontributory to illness Social History Smoker: Non-Smoker Alcohol: Denies ETOH Use Drugs: Denies Drug Use Lives In: Home Constitutional: reports: malaise, weakness; denies: chills, diaphoresis, fatigue, fever, sweats, others EENTM: denies: blurred vision, double vision, ear bleeding, ear discharge, ear drainage, ear pain, ear ringing, eye pain, eye redness, hearing loss, mouth pain, mouth swelling, nasal discharge, nose bleeding, nose congestion, nose pain, photophobia, tearing, throat pain, throat swelling, voice changes, others Respiratory: denies: cough, hemoptysis, orthopnea, SOB at rest, shortness of breath, SOB with excertion, stridor, wheezing, others Cardiovascular: denies: chest pain, dizzy spells, diaphoresis, Dyspnea on exertion, edema, irregular heart beat, left arm pain, lightheadedness, palpitations, PND, syncope, others Gastrointestinal: reports: vomiting; denies: abdomen distended, abdominal pain, blood streaked bowels, constipated, diarrhea, dysphagia, difficulty swallowing, hematemesis, melena, nausea, poor appetite, poor fluid intake, rectal bleeding, rectal pain, others Genitourinary: denies: abnormal vagina bleeding, burning, dyspareunia, dysuria, flank pain, frequency, hematuria, incontinence, pain, , vagina discharge, urgency, others Neurological: denies: dizziness, fainting, headache, left sided numbness, left sided weakness, numbness, paresthesia, pre-existing deficit, right sided numbness, right sided weakness, seizure, speech problems, tingling, tremors, weakness, others Musculoskeletal: denies: back pain, gout, joint pain, joint swelling, muscle pain, muscle stiffness, neck pain, others Integumetry: denies: bruises, change in color, change in hair/nails, dryness, laceration, lesions, lumps, rash, wounds, others Allergic/Immunocompromised: denies: Difficulty Healing, Frequent Infections, Hives, Itching, others Hematologic/Lymphatic: denies: anemia, blood clots, easy bleeding, easy bruising, swollen glands, others Endocrine: reports: excessive thirst; denies: excessive hunger, excessive sweating, excessive urination, flushing, intolerance to cold, intolerance to heat, unexplained weight gain, unexplained weight loss, others Psychiatric: denies: anxiety, bipolar disorder, depression, hopeless, panic disorder, schizophrenia, sleepless, suicidal, others All Other Systems: Reviewed and Negative Physical Exam General Appearance: Moderate Distress, Obese HEENT: Normal ENT Inspection, Pharynx Normal, TMs Normal Neck: Full Range of Motion, Non-Tender, Normal, Normal Inspection Respiratory: Chest Non-Tender, Lungs Clear, No Accessory Muscle Use, No Respiratory Distress, Normal Breath Sounds Cardiovascular: No Edema, No JVD, No Murmur, No Gallop, Normal Peripheral Pulses, Regular Rate/Rhythm Breast Exam: Deferred Gastrointestinal: No Organomegaly, Non Tender, No Pulsatile Mass, Normal Bowel Sounds, Soft Genitalia: Deferred Pelvic: Deferred Rectal: Deferred Extremities: No calf tenderness, Normal capillary refill, Normal inspection, Normal range of motion, Non-tender, No pedal edema Musculoskeletal : Apperance: Normal Neurologic: Alert, product handler II-XII nml as Tested, Motor Weakness, Normal Affect, Normal Mood, No Sensory Deficits Cerebellar Function: Normal Reflexes: Normal Skin: Dry, Normal Color, Warm Lymphatic: No Adenopathy Was a procedure done? Was a procedure done?: No Differential Diagnosis (DM) Differential Diagnosis: Dehydration, Diabetic Coma, DKA, Electrolyte Abnormality, Encephalopathy, Gastroenteritis, Hyperglycemia, Hyperosmolar State X-Ray, Labs, Meds, VS Vital Signs Date Time Temp Pulse Resp B/P (MAP) Pulse Ox O2 Delivery O2 Flow Rate FiO2 09/28/24 17:48 90 17 95 Room Air* 0 21 09/28/24 17:48 98.0 90 17 112/65 (81) 95 98.0 09/28/24 16:25 98.0 94 18 110/59 (76) 96 Lab Test 09/28/24 18:40 09/28/24 16:45 09/28/24 16:24 Range/Units Urine Color Yellow Yellow Urine Clarity Clear Clear Urine pH 5.5 5.0-9.0 Urine Specific [place] 1.022 1.001-1.035 Urine Protein Trace H Negative Urine Ketones Negative Negative Urine Blood Negative Negative /uL Urine Nitrite 1+ H Negative Urine Bilirubin Negative Negative Urine Urobilinogen Normal Negative mg/dL Urine Leukocyte Esterase Negative Negative /uL Urine RBC 3 0 - 4 /hpf Urine Microscopic WBC 3 0-5 /HPF Urine Squamous Epithelial Cells Few <5 /hpf Urine Bacteria Many H None Seen /hpf Urine Hyaline Casts Few 0 - 2 /lpf Urine Mucus Few None Seen Urine Glucose 3+ H Normal mg/dL White Blood Count 6.7 4.4-10.8 10^3/uL Red Blood Count 5.02 4.0-5.20 10^6/uL Hemoglobin 11.3 L 12.2-16.2 g/dL Hematocrit 36.6 36.0-46.0 % Mean Corpuscular Volume 72.8 L 80.0-100.0 fL Mean Corpuscular Hemoglobin 22.6 L 28.0-32.0 pg Mean Corpuscular Hemoglobin Concent 31.0 L 32.0-36.0 g/dL Red Cell Distribution Width 18.0 H 11.8-14.3 % Platelet Count 265 140-450 10^3/uL Mean Platelet Volume 8.7 6.9-10.8 fL Neutrophils (%) (Auto) 79.8 37.0-80.0 % Lymphocytes (%) (Auto) 14.7 10.0-50.0 % Monocytes (%) (Auto) 5.0 0.0-12.0 % Eosinophils (%) (Auto) 0.3 0.0-7.0 % Basophils (%) (Auto) 0.2 0.0-2.0 % Neutrophils # (Auto) 5.3 1.6-8.6 10 ^3/uL Lymphocytes # (Auto) 1.0 0.4-5.4 10 ^3/uL Monocytes # (Auto) 0.3 0-1.3 10 ^3/uL Eosinophils # (Auto) 0 0-0.8 10 ^3/uL Basophils # (Auto) 0 0-0.2 10 ^3/uL Nucleated Red Blood Cells 0.0 % Sodium Level 133 L 136-145 mmol/L Potassium Level 4.7 3.5-5.1 mmol/L Chloride Level 97 L 98-107 mmol/L Carbon Dioxide Level 25 20-31 mmol/L Anion Gap 11 5-15 Blood Urea Nitrogen 28 H 9-23 mg/dL Creatinine 1.10 H 0.550-1.02 mg/dL Glomerular Filtration Rate Calc 50 >90 mL/min BUN/Creatinine Ratio 25.5 H 10.0-20.0 Serum Glucose 397 H 74-106 mg/dL Calcium Level 10.4 8.7-10.4 mg/dL Beta-Hydroxybutyric Acid 0.475 H < 0.4 mmol/L POC Glucose 376 H 70-106 mg/dl Current Medications Medications (Trade) Dose Ordered Sig/Ventura Route Start Time Stop Time Status Last Admin Sodium Chloride 1,000 ml @ 1,000 mls/hr Q1H ONCE IV 09/28/24 16:15 09/28/24 17:14 DC 09/28/24 17:40 The CBC is within normal limits The chemistry panel shows hyperglycemia at 397 The beta hydroxybutyric acid is also elevated The patient was given normal saline at 1 L bolus The patient was being given insulin 5 units IV push The patient was being admitted The urine test is positive for UTI The patient was given Rocephin 1 g IV piggyback The patient was being admitted with a diagnosis of diabetes uncontrolled with hyperglycemia Time of 1ST Reevaluation: 16:50 Reevaluation 1ST: Unchanged Patient Education/Counseling: Diagnosis, Treatment, Prognosis Family Education/Counseling: Diagnosis, Treatment, Prognosis Departure 1 Departure Time of Disposition: 19:50 Impression: Primary Impression: Uncontrolled diabetes mellitus Qualified Codes: E13.65 - Other specified diabetes mellitus with hyperglycemia Additional Impression: UTI (urinary tract infection) Qualified Codes: N30.00 - Acute cystitis without hematuria Disposition: ADMITTED INPATIENT Admit to: Med Surg Condition: Fair Critical Care Note Critical Care Time?: No Stability Stability form required: Yes Unstable for transfer: ED Physician Assesment (Clinical assesment) Heart Score Heart Score: Heart Score Response (Comments) Value History N/A 0 EKG N/A 0 Age N/A 0 Risk Factors N/A 0 Troponin N/A 0 Total 0 I personally scribed for AKILA SMITH MD ([email or web address]) on 09/28/24 at 16:19. Electronically submitted by Lesly Carney ([email or web address]). AKILA SMITH MD Sep 28, 2024 16:19
[2024-09-28 17:02] LABS: Basophils # (auto) 0 10 ^3/uL (0-0.2); Basophils % (auto) 0.2 % (0.0-2.0); Eosinophils # (auto) 0 10 ^3/uL (0-0.8); Mean Corpuscular Volume 72.8 fL (80.0-100.0); Monocytes # (auto) 0.3 10 ^3/uL (0-1.3)
[2024-09-28 17:04] LABS: Eosinophils % (auto) 0.3 % (0.0-7.0); Hematocrit 36.6 % (36.0-46.0); Hemoglobin 11.3 g/dL (12.2-16.2); Lymphocytes % (auto) 14.7 % (10.0-50.0); Mean Corpuscular Hemoglobin 22.6 pg (28.0-32.0); Neutrophils # (auto) 5.3 10 ^3/uL (1.6-8.6); Neutrophils % (auto) 79.8 % (37.0-80.0); Platelet Count (auto) 265 10^3/uL (140-450); Red Blood Cells 5.02 10^6/uL (4.0-5.20); White Blood Cell 6.7 10^3/uL (4.4-10.8)
[2024-09-28 17:11] LABS: Potassium 4.7 mmol/L (3.5-5.1)
[2024-09-28 17:12] LABS: Anion Gap 11 (5-15); Carbon Dioxide 25 mmol/L (20-31)
[2024-09-28 17:17] LABS: BUN/Creatinine Ratio 25.5 (10.0-20.0)
[2024-09-28 17:20] LABS: Blood Urea Nitrogen 28 mg/dL (9-23); Calcium 10.4 mg/dL (8.7-10.4); Chloride 97 mmol/L (98-107); Glucose 397 mg/dL (74-106); Sodium 133 mmol/L (136-145)
[2024-09-28] MEDS: SODIUM CHLORIDE 0.9% 1,000 ML IV ONE (17:40)
[2024-09-28 17:48] VITALS: PULSE 90; RESP 17; O2SAT 95
[2024-09-28 19:15] LABS: Urine Bacteria MANY /hpf (None Seen); Urine Blood Negative /uL (Negative); Urine Clarity Clear (Clear); Urine Color Yellow (Yellow); Urine Hyaline Cast FEW /lpf (0 - 2); Urine Mucus FEW (None Seen); Urine Protein, UAD TRACE (Negative); Urine Specific Gravity 1.022 (1.001-1.035); Urine Squamous Epithelial Cell FEW /hpf (<5); Urine Urobilinogen Normal (Negative); Urine WBC 3 /HPF (0-5); Urine pH 5.5 (5.0-9.0)
[2024-09-28 20:59] VITALS: BP 137/58; PULSE 78; RESP 18; TEMP 98.2; O2SAT 94
[2024-09-28] MEDS ORDERED: DEXTROSE (50%) 50ML SYRG IV PRN (21:15)
[2024-09-28] MEDS: InsuLIN REG 1unit/0.01ml Soln (100units/ml) IV ONE (21:16)
[2024-09-28] MEDS: cefTRIAXone 1GM/50ML D5W 50 ML IV ONE (21:16)
[2024-09-28] MEDS ORDERED: INSULIN LANTUS (GLARGINE) 1 /0.01ml (100units/ml) SC SCH (22:00)
[2024-09-28] MEDS ORDERED: InsuLIN REG 1unit/0.01ml Soln (100units/ml) SC SCH (22:00)
[2024-09-28] MEDS ORDERED: ACCU-CHEK COMFORT CURVE STRIP VI SCH (22:00)
--- NOTE | 2024-09-29 05:53 | DVHHPRES ---
Review of Systems Allergies: Coded Allergies: Morphine (Verified Allergy, Severe, 08/10/18) Exam Vital Signs Vital Signs Date Time Temp Pulse Resp B/P (MAP) Pulse Ox O2 Delivery O2 Flow Rate FiO2 09/28/24 20:59 98.2 78 18 137/58 (84) 94 98.2 09/28/24 20:59 Room Air* 0 21 Labs/Xrays Labs Test 09/28/24 21:06 09/28/24 18:40 09/28/24 16:45 Range/Units POC Glucose 289 H 70-106 mg/dl Urine Color Yellow Yellow Urine Clarity Clear Clear Urine pH 5.5 5.0-9.0 Urine Specific [place] 1.022 1.001-1.035 Urine Protein Trace H Negative Urine Ketones Negative Negative Urine Blood Negative Negative /uL Urine Nitrite 1+ H Negative Urine Bilirubin Negative Negative Urine Urobilinogen Normal Negative mg/dL Urine Leukocyte Esterase Negative Negative /uL Urine RBC 3 0 - 4 /hpf Urine Microscopic WBC 3 0-5 /HPF Urine Squamous Epithelial Cells Few <5 /hpf Urine Bacteria Many H None Seen /hpf Urine Hyaline Casts Few 0 - 2 /lpf Urine Mucus Few None Seen Urine Glucose 3+ H Normal mg/dL White Blood Count 6.7 4.4-10.8 10^3/uL Red Blood Count 5.02 4.0-5.20 10^6/uL Hemoglobin 11.3 L 12.2-16.2 g/dL Hematocrit 36.6 36.0-46.0 % Mean Corpuscular Volume 72.8 L 80.0-100.0 fL Mean Corpuscular Hemoglobin 22.6 L 28.0-32.0 pg Mean Corpuscular Hemoglobin Concent 31.0 L 32.0-36.0 g/dL Red Cell Distribution Width 18.0 H 11.8-14.3 % Platelet Count 265 140-450 10^3/uL Mean Platelet Volume 8.7 6.9-10.8 fL Neutrophils (%) (Auto) 79.8 37.0-80.0 % Lymphocytes (%) (Auto) 14.7 10.0-50.0 % Monocytes (%) (Auto) 5.0 0.0-12.0 % Eosinophils (%) (Auto) 0.3 0.0-7.0 % Basophils (%) (Auto) 0.2 0.0-2.0 % Neutrophils # (Auto) 5.3 1.6-8.6 10 ^3/uL Lymphocytes # (Auto) 1.0 0.4-5.4 10 ^3/uL Monocytes # (Auto) 0.3 0-1.3 10 ^3/uL Eosinophils # (Auto) 0 0-0.8 10 ^3/uL Basophils # (Auto) 0 0-0.2 10 ^3/uL Nucleated Red Blood Cells 0.0 % Sodium Level 133 L 136-145 mmol/L Potassium Level 4.7 3.5-5.1 mmol/L Chloride Level 97 L 98-107 mmol/L Carbon Dioxide Level 25 20-31 mmol/L Anion Gap 11 5-15 Blood Urea Nitrogen 28 H 9-23 mg/dL Creatinine 1.10 H 0.550-1.02 mg/dL Glomerular Filtration Rate Calc 50 >90 mL/min BUN/Creatinine Ratio 25.5 H 10.0-20.0 Serum Glucose 397 H 74-106 mg/dL Calcium Level 10.4 8.7-10.4 mg/dL Beta-Hydroxybutyric Acid 0.475 H < 0.4 mmol/L Thyroid Stimulating Hormone (TSH) 0.45 L 0.55-4.78 uIU/mL Assessment/Plan My Orders Orders - JAVIER MIN RESIDENT Procedure Category Date Status Time Admit ADMIT 09/28/24 Transmitted 21:04 *Rn Fire Extinguisher Inspector REFER 09/28/24 Transmitted Referral 21:04 JAVIER MIN RESIDENT Sep 29, 2024 05:53
--- NOTE | 2024-09-29 05:53 | DVHDSRES ---
Discharge Summary Date of Admission Sep 28, 2024 at 21:04 Labs/Diagnostic Data: Laboratory Results Test 09/28/24 21:06 09/28/24 18:40 09/28/24 16:45 POC Glucose 289 mg/dl (70-106) Urine Color Yellow (Yellow) Urine Clarity Clear (Clear) Urine pH 5.5 (5.0-9.0) Urine Specific [place] 1.022 (1.001-1.035) Urine Protein Trace (Negative) Urine Ketones Negative (Negative) Urine Blood Negative /uL (Negative) Urine Nitrite 1+ (Negative) Urine Bilirubin Negative (Negative) Urine Urobilinogen Normal mg/dL (Negative) Urine Leukocyte Esterase Negative /uL (Negative) Urine RBC 3 /hpf (0 - 4) Urine Microscopic WBC 3 /HPF (0-5) Urine Squamous Epithelial Cells Few /hpf (<5) Urine Bacteria Many /hpf (None Seen) Urine Hyaline Casts Few /lpf (0 - 2) Urine Mucus Few (None Seen) Urine Glucose 3+ mg/dL (Normal) White Blood Count 6.7 10^3/uL (4.4-10.8) Red Blood Count 5.02 10^6/uL (4.0-5.20) Hemoglobin 11.3 g/dL (12.2-16.2) Hematocrit 36.6 % (36.0-46.0) Mean Corpuscular Volume 72.8 fL (80.0-100.0) Mean Corpuscular Hemoglobin 22.6 pg (28.0-32.0) Mean Corpuscular Hemoglobin Concent 31.0 g/dL (32.0-36.0) Red Cell Distribution Width 18.0 % (11.8-14.3) Platelet Count 265 10^3/uL (140-450) Mean Platelet Volume 8.7 fL (6.9-10.8) Neutrophils (%) (Auto) 79.8 % (37.0-80.0) Lymphocytes (%) (Auto) 14.7 % (10.0-50.0) Monocytes (%) (Auto) 5.0 % (0.0-12.0) Eosinophils (%) (Auto) 0.3 % (0.0-7.0) Basophils (%) (Auto) 0.2 % (0.0-2.0) Neutrophils # (Auto) 5.3 10 ^3/uL (1.6-8.6) Lymphocytes # (Auto) 1.0 10 ^3/uL (0.4-5.4) Monocytes # (Auto) 0.3 10 ^3/uL (0-1.3) Eosinophils # (Auto) 0 10 ^3/uL (0-0.8) Basophils # (Auto) 0 10 ^3/uL (0-0.2) Nucleated Red Blood Cells 0.0 % Sodium Level 133 mmol/L (136-145) Potassium Level 4.7 mmol/L (3.5-5.1) Chloride Level 97 mmol/L (98-107) Carbon Dioxide Level 25 mmol/L (20-31) Anion Gap 11 (5-15) Blood Urea Nitrogen 28 mg/dL (9-23) Creatinine 1.10 mg/dL (0.550-1.02) Glomerular Filtration Rate Calc 50 mL/min (>90) BUN/Creatinine Ratio 25.5 (10.0-20.0) Serum Glucose 397 mg/dL (74-106) Calcium Level 10.4 mg/dL (8.7-10.4) Beta-Hydroxybutyric Acid 0.475 mmol/L (< 0.4) Thyroid Stimulating Hormone (TSH) 0.45 uIU/mL (0.55-4.78) Other Laboratory Tests 09/28/24 16:45 Discharge Statement: "Patient was advised to return to the ER or call 911 if any headaches, dizziness, shortness of breath, chest pain, abdominal pain, bleeding, fevers, or worsening of medical condition. Patient was counseled about treatment plan, medications, possible side effects, patientverbalized understanding. All questions were answered to the best of my ability. This discharge took greater then 30 minutes in planning, reviewing documentation, counseling the patient, and discussing with other team members." ASSESSMENT ASSESSMENT Assessment JAVIER MIN RESIDENT Sep 29, 2024 05:53
[2024-09-29] MEDS ORDERED: ANASTRAZOLE 1 MG PO SCH (10:00)
== END 2024-09-28 21:49 | disposition left against medical advice (07) | DRG 638 ==
LOC: ER 15:51 → OVERFLOW 21:00
PROVIDERS: ATTEND Emergency Medicine
DX: E11.65 Type 2 diabetes mellitus with hyperglycemia (principal); N39.0 Urinary tract infection, site not specified; K21.9 Gastro-esophageal reflux disease without esophagitis; Z53.29 Procedure and treatment not carried out because of patient's decision for other reasons; I10 Essential (primary) hypertension; Z79.4 Long term (current) use of insulin; Z79.899 Other long term (current) drug therapy; Z90.49 Acquired absence of other specified parts of digestive tract
CPT/HCPCS: 36415; 80048; 81001; 82010; 82962; 84443; 85025; 96360; G0378; J1815

== ENCOUNTER 2024-12-04 17:12 | Emergency (ER) | payer MEDICARE, MEDICAID ==
[~2024-12-04] VITALS: Ht 154.9 cm; Wt 70.7 kg
--- NOTE | 2024-12-04 18:47 | ED.PDOC ---
History of Present Illness(SKN HPI Comments 84-year-old female patient presents with her son chief complaint itchy rash. Patient states rash started 3 days ago in the itchiness she notes no change in her routine however she does state started [id number] medication about 1 week ago for her restless legs. She can not recall the name of the medication. Denies difficulty breathing, chest pain, shortness of breath, dizziness, throat swelling, nausea or vomiting. Chief Complaint: Rash Time Seen by MD: 18:01 Primary Care Provider: UNKNOWN History of Present Illness: Nurses Notes, Medications, Allergies Allergies: Coded Allergies: Morphine (Verified Allergy, Severe, 08/10/18) Home Meds Active Scripts Famotidine (Famotidine) 20 Mg Tab, 20 MG PO BID for 6 Days, #12 TAB Prov:BLANKA COLLADO SHEET ROLLER OPERATOR 5//25 Methylprednisolone (Medrol Dosepak) 4 Mg Tommie, 4 MG PO UD for 6 Days, #21 TAB UAD Prov:BLANKA COLLADO SHEET ROLLER OPERATOR 5//25 Lidocaine (LIDODERM 5% TOPICAL PATCH) 1 Patch Ph, 1 PATCH TOP DAILY PRN, #30 PATCH 1 Refill Prov:HAIDER BETTS [employer] ROLL[employer] OPERATOR 07/22/22 Ibuprofen Micronized (Ibuprofen) 600 Mg Tab, 400 MG PO Q8HPRN PRN, #30 TAB 0 Refills Prov:HAIDER BETTS [facility] 07/22/22 Reported Medications Anastrozole (Anastrozole) 1 Mg Tab, 1 TAB PO DAILY, #30 TAB 5 Refills 02/01/19 Sitagliptin Phosphate (Januvia) 50 Mg Tab, 1 TAB PO DAILY, #30 TAB 5 Refills 08/11/18 Pantoprazole Sodium Sesquihydr (Protonix) 40 Mg Tab, 40 MG PO DAILY, #30 TAB 08/11/18 Rivaroxaban (XARELTO) 20 Mg Tab, 1 TAB PO DAILY, #30 TAB 11 Refills 06/03/15 Metformin Hydrochloride (Metformin Hcl) 1,000 Mg Tab, 1 TAB PO BID, #60 TAB 5 Refills 06/03/15 Lisinopril (Lisinopril) 2.5 Mg Tab, 1 TAB PO DAILY, #30 TAB 5 Refills 06/03/15 Glipizide (Glipizide) 5 Mg Tab, 5 MG PO DAILY for 30 Days, MG 06/03/15 Simvastatin (Simvastatin) 20 Mg Tab, 20 MG PO DAILY, TAB 06/09/13 Information Source: Patient Mode of Arrival: Ambulatory Past Medical History PAST MEDICAL HISTORY: Arthritis, Cancer, DM, GERD, High Lipids, HTN Surgical History: Cholecystectomy SUPERINTENDENT GENERAL History: No Pertinent SUPERINTENDENT GENERAL History Family History Family History: Reviewed,noncontributory to illness Social History Smoker: Non-Smoker Alcohol: Denies ETOH Use Drugs: Denies Drug Use Lives In: Home Constitutional: denies: chills, diaphoresis, fatigue, fever, malaise, sweats, weakness, others EENTM: denies: blurred vision, double vision, ear bleeding, ear discharge, ear drainage, ear pain, ear ringing, eye pain, eye redness, hearing loss, mouth pain, mouth swelling, nasal discharge, nose bleeding, nose congestion, nose pain, photophobia, tearing, throat pain, throat swelling, voice changes, others Respiratory: denies: cough, hemoptysis, orthopnea, SOB at rest, shortness of breath, SOB with excertion, stridor, wheezing, others Cardiovascular: denies: chest pain, dizzy spells, diaphoresis, Dyspnea on exertion, edema, irregular heart beat, left arm pain, lightheadedness, palpitations, PND, syncope, others Gastrointestinal: denies: abdomen distended, abdominal pain, blood streaked bowels, constipated, diarrhea, dysphagia, difficulty swallowing, hematemesis, melena, nausea, poor appetite, poor fluid intake, rectal bleeding, rectal pain, vomiting, others Genitourinary: denies: abnormal vagina bleeding, burning, dyspareunia, dysuria, flank pain, frequency, hematuria, incontinence, pain, , vagina discharge, urgency, others Neurological: denies: dizziness, fainting, headache, left sided numbness, left sided weakness, numbness, paresthesia, pre-existing deficit, right sided numbness, right sided weakness, seizure, speech problems, tingling, tremors, weakness, others Musculoskeletal: denies: back pain, gout, joint pain, joint swelling, muscle pain, muscle stiffness, neck pain, others Integumetry: reports: rash; denies: bruises, change in color, change in hair/nails, dryness, laceration, lesions, lumps, wounds, others Allergic/Immunocompromised: reports: Itching; denies: Difficulty Healing, Fr equent Infections, Hives, others Hematologic/Lymphatic: denies: anemia, blood clots, easy bleeding, easy b ruising, swollen glands, others Endocrine: denies: excessive hunger, excessive sweating, excessive thirst, excessive urination, flushing, intolerance to cold, intolerance to heat, unexplained weight gain, unexplained weight loss, others Psychiatric: denies: anxiety, bipolar disorder, depression, hopeless, panic disorder, schizophrenia, sleepless, suicidal, others Physical Exam General Appearance: No Apparent Distress, Normal HEENT: Normal ENT Inspection, Pharynx Normal, TMs Normal Neck: Full Range of Motion, Non-Tender Respiratory: Lungs Clear, No Respiratory Distress, Normal Breath Sounds Cardiovascular: No Edema, No JVD, No Murmur, No Gallop, Normal Peripheral Pulses, Regular Rate/Rhythm Breast Exam: Deferred Gastrointestinal: No Organomegaly, Non Tender, No Pulsatile Mass, Normal Bowel Sounds, Soft Genitalia: Deferred Pelvic: Deferred Rectal: Deferred Extremities: Normal capillary refill, Normal inspection, Normal range of motion, Non-tender, No pedal edema Musculoskeletal : Apperance: Normal Neurologic: Alert, healthcare specialist II-XII nml as Tested, No Motor Deficits, Normal Affect, Normal Mood, No Sensory Deficits Cerebellar Function: Normal Reflexes: Normal Skin: Dry, Normal Color, Rash (Diffuse papular erythemic rash no noted excoriations, lesions, or open wounds no noted drainage or streaking), Warm Lymphatic: No Adenopathy Was a procedure done? Was a procedure done?: No Differential Diagnosis (INTG) Differential Diagnosis: Atopic dermatitis, Cellulitis, Herpes Zoster/Simplex, Impetigo, Scabies, Urticaria, Varicella, Viral exanthema X-Ray, Labs, Meds, VS Vital Signs Date Time Temp Pulse Resp B/P (MAP) Pulse Ox O2 Delivery O2 Flow Rate FiO2 12/04/24 17:21 98.2 88 18 153/66 (95) 96 98.2 X-Ray, Labs, Meds, VS Comment Advised patient to stop the [id number] medication. Decadron 10 mg IM and Pepcid 40 mg p.o. patient reports improvement in itchiness requesting discharge at this time. Script Medrol Dosepak and Pepcid x6 days. Advised to rest increase p.o. fluids with electrolytes. He is to follow up with her PCP in 2 days as necessary consider prescription for her restless leg syndrome versus natural pathic vyms-ore-ucpaabl medications. ER return precautions given patient indicates understanding agrees with discharge plan of care. Time of 1ST Reevaluation: 18:47 Reevaluation 1ST: Unchanged Time of 2ND Reevaluation: 19:05 Reevaluation 2ND: Improved Patient Education/Counseling: Diagnosis, Treatment, Prognosis, Need For Follow Up Family Education/Counseling: Diagnosis, Treatment, Prognosis, Need For Follow Up Departure 1 Departure Time of Disposition: 19:05 Impression: Primary Impression: Allergic reaction Qualified Codes: T78.40XA - Allergy, unspecified, initial encounter Disposition: HOME / SELF CARE / HOMELESS Condition: Stable e-Prescriptions Famotidine (Famotidine) 20 Mg Tab 20 MG PO BID for 6 Days, #12 TAB Prov: BLANKA COLLADO 12/04/24 Methylprednisolone (Medrol Dosepak) 4 Mg Tommie 4 MG PO UD for 6 Days, #21 TAB UAD Prov: BLANKA COLLADO 12/04/24 Discharged With: Self Critical Care Note Critical Care Time?: No Stability Stability form required: No BLANKA COLLADO December 04, 2024 18:47
[2024-12-04] MEDS ORDERED: METH4PAK PO (19:07)
[2024-12-04] MEDS ORDERED: FAMO-12 PO (19:07)
[2024-12-04 19:52] VITALS: BP 124/73; PULSE 99; RESP 19; TEMP 98.7; O2SAT 93
[2024-12-04] MEDS: FAMOTIDINE 20 MG TAB PO ONE (19:52)
[2024-12-04] MEDS: DexAMETHasone SOD PHOS 10MG/1ML VIAL INJ IM ONE (19:52)
== END 2024-12-04 20:24 | disposition home or self-care (01) ==
LOC: ER 17:12
DX: R21 Rash and other nonspecific skin eruption (principal); M19.90 Unspecified osteoarthritis, unspecified site; I10 Essential (primary) hypertension; E11.9 Type 2 diabetes mellitus without complications; E78.5 Hyperlipidemia, unspecified; Z90.49 Acquired absence of other specified parts of digestive tract; Z79.01 Long term (current) use of anticoagulants; Z79.811 Long term (current) use of aromatase inhibitors; Z79.84 Long term (current) use of oral hypoglycemic drugs; Z79.899 Other long term (current) drug therapy; Z88.5 Allergy status to narcotic agent
CPT/HCPCS: 96372; 99283; J1100

== ENCOUNTER 2025-03-28 19:42 | Inpatient (IN) | payer MEDICARE, MEDICAID ==
[~2025-03-28] VITALS: Ht 165.1 cm; Wt 72.1 kg
[2025-03-28] MEDS: SODIUM CHLORIDE 0.9% 1,000 ML IV ONE (20:15)
[2025-03-28 20:40] LABS: Hematocrit 41.3 % (36.0-46.0); Hemoglobin 13.6 g/dL (12.2-16.2); Mean Corpuscular Hemoglobin 26.3 pg (28.0-32.0); Mean Corpuscular Volume 79.9 fL (80.0-100.0); Nucleated Red Blood Cells % 0.1 %
--- NOTE | 2025-03-28 20:40 | ED.PDOC ---
History of Present Illness HPI Comments HPI: 85-year-old female brought in by daughter presents to the emergency department with a chief complaint of body aches onset 3 days. Patient states she has been experiencing generalized body aches for the past 3 days, noticed pain worsened today. Patient's daughter is also experiencing similar symptoms. Patient takes ibuprofen for chronic knee pain, last ibuprofen was today at noon. Denies headache, chest pain, shortness of breath, cough, dizziness, blurry vision, nausea, vomiting, diarrhea, dysuria, hematuria. No other symptoms or modifying factors present at this time. Initial Vitals BP: 113/90 HR: 107 RR: 20 O2: 95% Temp: 100.6 F Past Medical History: arthritis,breast cancer, DM, GERD, HLD, HTN, chronic knee pain Past Surgical History: cholecystectomy Social History: Denies ETOH, smoking, and drug use. Medications: Lisinopril, glipizide, ibuprofen Allergies: NKDA HPI: Poor Historian. Generalized body aches. REVIEW OF SYSTEMS: CONSTITUTIONAL: Denies acute: diaphoresis, chills, HEAD: Denies acute: headache, photophobia Eyes: Denies acute: Double vision, vision loss, eye pain, eye discharge. EARS: Denies acute: tinnitus, hearing loss, ear discharge, ear pain, THROAT: Denies acute: sore throat, swelling, difficulty swallowing , pain with swallowing, change in voice. NECK: Denies acute: neck pain, neck swelling, stiff neck. HEART: Denies acute : chest pain, palpitations, LUNGS: Denies acute: SOB, wheezing, cough, hemoptysis ABDOMEN: Denies acute: abdominal pain, Nausea, Vomiting, diarrhea, melena , hematemesis, hematochezia SKIN: Denies acute: rash, redness, lesions, itchiness. EXTREMITIES: Denies acute: calf pain, numbness, tingling, weakness, denies pain in extremity. Denies acute: Low back pain. Neuro: Denies acute: focal neurological deficit, motor or sensory focal neurological deficit, tremors, seizure like activity, confusion, dizziness, change in mental status, loss of bowel or bladder function, cauda equina like symptoms. : Denies acute: dysuria, hematuria, flank pain, increase in urinary frequency. PSYCH: Denies acute: hallucination, suicidal ideation, homicidal ideation. FEMALE: Denies acute: abnormal vaginal bleeding, foul odor, unusual discharge. PHYSICAL EXAM: General: ---mild-----acute distress, awake and alert. Head: normocephalic, atraumatic. Neck: supple, trachea is midline, no swelling. Throat: Normal phonation. Eyes:, no erythema, no purulent discharge, no proptosis, no icterus. Heart: regular rate, regular rhythm, no significant murmur appreciated. Lungs: no apparent respiratory distress, Able to speak in full sentences. No wheezing, no rhonchi, no crackles. No stridors Clear to auscultation bilaterally. Abdomen: non tender to palpation, non distended, soft, no guarding, no rebound, + bowel sounds. Neuro: Awake, Alert, oriented to name, self, situation, follows commands GCS=15. Speech is normal. Skin: no petechia, no purpura, no cyanosis, non-pale, not jaundice. Lower extremities: --no - Pitting edema no deformity, no focal swelling, no calf TTP. Makes eye contact. moves all four extremities. Face: no apparent facial droop. Ambulating in the ED independently. ED COURSE: DISCLAIMER: This medical document was created using an electronic medical record system with voice recognition software and computerized dictation system. Although this document has been carefully reviewed, there might still be some phonetic and typographical errors. Occasional wrong-word or "sound-alike" substitutions may have occurred due to the inherent limitations of voice recognition software. These areas are purely typographical due to imperfections of the software programs and do not reflect any compromise in the patient's medical care. Please read the chart carefully and recognize, using context, where these substitutions have occurred. Chief Complaint: Flu like Time Seen by MD: 20:25 Primary Care Provider: UNKNOWN Reviewed Notes: Medications, Allergies Allergies: Coded Allergies: Morphine (Verified Allergy, Severe, 08/10/18) Home Meds Active Scripts Lidocaine (LIDODERM 5% TOPICAL PATCH) 1 Patch Ph, 1 PATCH TOP DAILY PRN, #30 PATCH 1 Refill Prov:HAIDER BETTS COMMUNICATIONS WRITER 07/22/22 Ibuprofen Micronized (Ibuprofen) 600 Mg Tab, 400 MG PO Q8HPRN PRN, #30 TAB 0 Refills Prov:HAIDER BETTS COMMUNICATIONS WRITER 07/22/22 Reported Medications Anastrozole (Anastrozole) 1 Mg Tab, 1 TAB PO DAILY, #30 TAB 5 Refills 02/01/19 Sitagliptin Phosphate (Januvia) 50 Mg Tab, 1 TAB PO DAILY, #30 TAB 5 Refills 08/11/18 Pantoprazole Sodium Sesquihydr (Protonix) 40 Mg Tab, 40 MG PO DAILY, #30 TAB 08/11/18 Rivaroxaban (XARELTO) 20 Mg Tab, 1 TAB PO DAILY, #30 TAB 11 Refills 06/03/15 Metformin Hydrochloride (Metformin Hcl) 1,000 Mg Tab, 1 TAB PO BID, #60 TAB 5 Refills 06/03/15 Lisinopril (Lisinopril) 2.5 Mg Tab, 1 TAB PO DAILY, #30 TAB 5 Refills 06/03/15 Glipizide (Glipizide) 5 Mg Tab, 5 MG PO DAILY for 30 Days, MG 06/03/15 Simvastatin (Simvastatin) 20 Mg Tab, 20 MG PO DAILY, TAB 06/09/13 Information Source: Patient, Relative Mode of Arrival: Ambulatory Severity: Moderate Timing: Days Duration: Since onset Prehospital treatment: Pain Meds (Ibuprofen) Past Medical History PAST MEDICAL HISTORY: Arthritis, Cancer, DM, GERD, High Lipids, HTN Surgical History: Cholecystectomy SCREEN PRINTER History: No Pertinent SCREEN PRINTER History Family History Family History: Reviewed,noncontributory to illness Social History Smoker: Non-Smoker Alcohol: Denies ETOH Use Drugs: Denies Drug Use Lives In: Home Was a procedure done? Was a procedure done?: No Differential Dx Considerations may include: Includes but not limited to thyroid disease, encephalopathy, electrolyte abnormality, sepsis, infection, intracranial pathology, drug adverse effects, arrhythmia, kidney insufficiency, ACS, CVA, malignancy, anemia X-Ray, Labs, Meds, VS Vital Signs Date Time Temp Pulse Resp B/P (MAP) Pulse Ox O2 Delivery O2 Flow Rate FiO2 03/29/25 05:10 98.1 78 20 125/87 (100) 97 98.1 03/29/25 01:20 78 20 97 Room Air* 0 21 03/29/25 01:20 98.1 80 20 121/80 (94) 97 98.1 03/28/25 19:49 100.6 107 20 113/90 95 100.6 Lab Test 03/29/25 02:00 03/28/25 23:25 03/28/25 22:28 03/28/25 21:13 Range/Units Influenza Type A Antigen Negative Negative Influenza Type B Antigen Negative Negative SARS-CoV-2 Antigen (Rapid) Negative NEGATIVE Troponin I High Sensitivity < 3 L 3 L </=34 ng/L Lactic Acid Level 2.0 0.4-2.0 mmol/L Test 03/28/25 20:23 Range/Units White Blood Count 6.4 4.4-10.8 10^3/uL Red Blood Count 5.16 4.0-5.20 10^6/uL Hemoglobin 13.6 12.2-16.2 g/dL Hematocrit 41.3 36.0-46.0 % Mean Corpuscular Volume 79.9 L 80.0-100.0 fL Mean Corpuscular Hemoglobin 26.3 L 28.0-32.0 pg Mean Corpuscular Hemoglobin Concent 33.0 32.0-36.0 g/dL Red Cell Distribution Width 20.7 H 11.8-14.3 % Platelet Count 235 140-450 10^3/uL Mean Platelet Volume 8.8 6.9-10.8 fL Neutrophils (%) (Auto) 86.0 H 37.0-80.0 % Lymphocytes (%) (Auto) 8.4 L 10.0-50.0 % Monocytes (%) (Auto) 3.9 0.0-12.0 % Eosinophils (%) (Auto) 0.9 0.0-7.0 % Basophils (%) (Auto) 0.8 0.0-2.0 % Neutrophils # (Auto) 5.5 1.6-8.6 10 ^3/uL Lymphocytes # (Auto) 0.5 0.4-5.4 10 ^3/uL Monocytes # (Auto) 0.2 0-1.3 10 ^3/uL Eosinophils # (Auto) 0.1 0-0.8 10 ^3/uL Basophils # (Auto) 0.1 0-0.2 10 ^3/uL Nucleated Red Blood Cells 0.1 % Prothrombin Time 11.0 9.3-11.8 sec Prothrombin Time INR 1.04 0.9-1.15 Activated Partial Thromboplast Time 24.0 L 24.5-34.5 SEC Sodium Level 137 136-145 mmol/L Potassium Level 4.3 3.5-5.1 mmol/L Chloride Level 103 98-107 mmol/L Carbon Dioxide Level 23 20-31 mmol/L Anion Gap 11 5-15 Blood Urea Nitrogen 19 9-23 mg/dL Creatinine 0.84 0.550-1.02 mg/dL Glomerular Filtration Rate Calc 69 >90 mL/min BUN/Creatinine Ratio 22.6 H 10.0-20.0 Serum Glucose 244 H 74-106 mg/dL Lactic Acid Level 2.4 *H 0.4-2.0 mmol/L Calcium Level 8.9 8.7-10.4 mg/dL Magnesium Level 1.4 L 1.6-2.6 mg/dL Total Bilirubin 0.4 0.2-1.0 mg/dL Aspartate Amino Transferase (AST) 13 13-40 U/L Alanine Aminotransferase (ALT) 16 7-40 U/L Alkaline Phosphatase 80 46-116 U/L Troponin I High Sensitivity 3 L </=34 ng/L B-Type Natriuretic Peptide 28.21 0-100 pg/mL Total Protein 6.8 5.7-8.2 g/dL Albumin 4.4 3.2-4.8 g/dL Current Medications Medications (Trade) Dose Ordered Sig/Ventura Route Start Time Stop Time Status Last Admin Sodium Chloride 1,000 ml @ 1,000 mls/hr Q1H ONCE IV 03/28/25 20:15 03/28/25 21:14 MO 03/28/25 20:15 Lactated Ringer's 1,700 ml @ 1,700 mls/hr ONCE ONCE IV 03/28/25 20:15 03/28/25 21:14 DC 03/29/25 02:05 Cefepime HCl 50 ml @ 50 mls/hr ONCE ONCE IV 03/28/25 20:30 03/28/25 21:29 DC 03/29/25 02:03 Magnesium Sulfate/ Dextrose 100 ml @ 100 mls/hr ONCE ONCE IV 03/28/25 21:15 03/28/25 22:14 DC 03/29/25 03:[address] [address] Ph: [phone] DIAGNOSTIC IMAGING Diagnostic Imaging Report : [id number] Signed PATIENT: JAVIER GUEVARA ACCT: [id number] UNIT: [id number] : 1940 LOC: ER ROOM / BED: / AGE / SEX: 85 / F ADM STATUS: REG ER SERVICE 04 ORDERING PHYSICIAN: PONCHO FRYE DO PROCEDURE(s): CXRP - CHEST PORTABLE REASON: Flu-like symptoms ORDER NUMBER(s): [id number], ACCESSION NUMBER(s): [id number] EXAM: XY CHEST PORTABLE HISTORY: Flu-like symptoms TECHNIQUE: 1 view of the chest COMPARISON: None FINDINGS/IMPRESSION: LUNGS: No pleural effusion, consolidation, or pneumothorax MEDIASTINUM: Unremarkable BONES: No acute osseous abnormality OTHER: Surgical clips along the left lateral chest . Additional surgical clips in the right upper quadrant. ATED BY: SARAH BETH SMILEY MD DICTATED DATE/TIME: 03/28/252106 SIGNED BY: SARAH BETH SMILEY MD SIGNED DATE/TIME: 03/28/252106 CC: [place] [id number] Ph: [phone] DIAGNOSTIC IMAGING Diagnostic Imaging Report : [id number] Signed PATIENT: JAVIER GUEVARA ACCT: [id number] UNIT: [id number] : 1940 LOC: ER ROOM / BED: / AGE / SEX: 85 / F ADM STATUS: REG ER SERVICE 3 ORDERING PHYSICIAN: PONCHO FRYE DO PROCEDURE(s): BLDVT - BiLat Lower DVT REASON: pain ORDER NUMBER(s): [id number], ACCESSION NUMBER(s): [id number] Bilateral lower extremity venous duplex Clinical History: pain Comparison: LT LOWER DVT on DOS: 07/22/22, LLDVT on DOS: 07/22/22 Technique: Duplex Doppler evaluation of the deep venous systems of both lower extremities from the common femoral veins to the popliteal veins including color Doppler and spectral/pulsed waveform analysis was performed. Findings: RIGHT SIDE: The common femoral vein demonstrates appropriate compressibility and waveform variability. There is compressibility/patency of the great saphenous vein at the proximal thigh. The femoral vein demonstrates appropriate compressibility and waveform variability. The deep femoral vein demonstrates appropriate compressibility and waveform variability. The popliteal vein demonstrates appropriate compressibility and waveform variability. There is normal compressibility at the tibioperoneal trunk. LEFT SIDE: The common femoral vein demonstrates appropriate compressibility and waveform variability. There is compressibility/patency of the great saphenous vein at the proximal thigh. The femoral vein demonstrates appropriate compressibility and waveform variability. The deep femoral vein demonstrates appropriate compressibility and waveform variability. The popliteal vein demonstrates appropriate compressibility and waveform variability. There is normal compressibility at the tibioperoneal trunk. Impression: No right or left femoropopliteal venous thrombosis. ATED BY: SCAR HARRIS MD DICTATED DATE/TIME: 03/29/25510 SIGNED BY: SCAR HARRIS MD SIGNED DATE/TIME: 03/29/25510 CC: Time of 1ST Reevaluation: 20:55 Reevaluation 1ST: Unchanged Patient Education/Counseling: Diagnosis, Treatment Family Education/Counseling: Diagnosis, Treatment Comments MDM: patient presented with the above HPI.---fever and generalized weakness---workup was initiated. patient was found with the above mentioned diagnosis. the following medications were ordered: please refer to order lists of meds and tests obtained by myself Dr. Frye. Patient ED course and VS have been stabilized. Patient has been reassessed in the ED and remained in a stable condition. Pertinent incidental findings were discussed with the patient and/or family. Patient/family voices understanding and is agreeable with plan. Patient has been observed in the ED adequate length of time to insure improvement/stability. Escalation of care considered: Consideration of escalation to observation or admission Patient was ADMITTED to the medicine team for further evaluation and treatment of their presentation. Fever of unknown etiology All the reports of any imaging studies that were ordered by myself were reviewed by myself. Departure 1 Departure Time of Disposition: 00:25 Impression: Primary Impression: Fever Qualified Codes: R50.9 - Fever, unspecified Additional Impressions: Flu-like symptoms Hypomagnesemia Generalized body aches Disposition: ADMITTED INPATIENT Admit to: Tele Condition: Guarded Additional Instructions: [facility] [address] [place] [address] Ph: [phone] DIAGNOSTIC IMAGING Diagnostic Imaging Report : [id number] Signed PATIENT: JAVIER GUEVARA ACCT: [id number] UNIT: [id number] : 1940 LOC: ER ROOM / BED: / AGE / SEX: 85 / F ADM STATUS: REG ER SERVICE 04 ORDERING PHYSICIAN: PONCHO FRYE DO PROCEDURE(s): CXRP - CHEST PORTABLE REASON: Flu-like symptoms ORDER NUMBER(s): [id number], ACCESSION NUMBER(s): [id number] EXAM: XY CHEST PORTABLE HISTORY: Flu-like symptoms TECHNIQUE: 1 view of the chest COMPARISON: None FINDINGS/IMPRESSION: LUNGS: No pleural effusion, consolidation, or pneumothorax MEDIASTINUM: Unremarkable BONES: No acute osseous abnormality OTHER: Surgical clips along the left lateral chest . Additional surgical clips in the right upper quadrant. ATED BY: SARAH BETH SMILEY MD DICTATED DATE/TIME: 03/28/252106 SIGNED BY: SARAH BETH SMILEY MD SIGNED DATE/TIME: 03/28/252106 CC: Discharged With: Self Critical Care Note Critical Care Time?: No Heart Score Heart Score: Heart Score Response (Comments) Value History N/A 0 EKG N/A 0 Age N/A 0 Risk Factors N/A 0 Troponin N/A 0 Total 0 I personally scribed for PONCHO FRYE DO ([email or web address]) on 03/28/25 at 20:40. Electronically submitted by Beth Hernandez ([email or web address]). I personally scribed for PONCHO FRYE DO ([email or web address]) on 03/28/25 at 21:08. Electronically submitted by Beth Hernandez ([email or web address]). I personally scribed for PONCHO FRYE DO ([email or web address]) on 03/28/25 at 22:49. Electronically submitted by Beth Hernandez ([email or web address]). I personally scribed for PONCHO FRYE DO ([email or web address]) on 03/29/25 at 06:05. Electronically submitted by Beth Hernandez ([email or web address]). PONCHO FRYE DO Mar 28, 2025 20:40
[2025-03-28 20:55] LABS: INR 1.04 (0.9-1.15); Partial Thromboplastin Time 24.0 SEC (24.5-34.5); Prothrombin Time 11.0 sec (9.3-11.8)
[2025-03-28 20:58] LABS: Alanine Aminotransferase 16 U/L (7-40); Albumin 4.4 g/dL (3.2-4.8); Alkaline Phosphatase 80 U/L (46-116); Anion Gap 11 (5-15); BUN/Creatinine Ratio 22.6 (10.0-20.0); Blood Urea Nitrogen 19 mg/dL (9-23); Calcium 8.9 mg/dL (8.7-10.4); Carbon Dioxide 23 mmol/L (20-31); Chloride 103 mmol/L (98-107); Potassium 4.3 mmol/L (3.5-5.1); Sodium 137 mmol/L (136-145); Total Protein 6.8 g/dL (5.7-8.2)
[2025-03-28 20:59] LABS: Bilirubin, Total 0.4 mg/dL (0.2-1.0)
[2025-03-28 21:00] LABS: Glucose 244 mg/dL (74-106); Magnesium 1.4 mg/dL (1.6-2.6)
[2025-03-28 21:01] LABS: Lactic Acid w/Reflex 2.4 mmol/L (0.4-2.0)
--- NOTE | 2025-03-28 21:09 | DVH ---
EXAM: XY CHEST PORTABLE HISTORY: Flu-like symptoms TECHNIQUE: 1 view of the chest COMPARISON: None FINDINGS/IMPRESSION: LUNGS: No pleural effusion, consolidation, or pneumothorax MEDIASTINUM: Unremarkable BONES: No acute osseous abnormality OTHER: Surgical clips along the left lateral chest . Additional surgical clips in the right upper seema drant.
[2025-03-29] VITALS (7 sets, daily range): BP systolic 101–116; BP diastolic 59–67; PULSE 78–96; RESP 18–20; TEMP 97.4–98.3; O2SAT 91–97
[2025-03-29] MEDS: CEFEPIME 1GM/50ML 50 ML IV ONE (02:03)
[2025-03-29] MEDS: LACTATED RINGER'S 1,700 ML IV ONE (02:05)
[2025-03-29 03:12] LABS: COVID19 ANTIGEN SOFIA FIA NEGATIVE (NEGATIVE)
[2025-03-29] MEDS: MAGNESIUM SULFATE 1GM/100ML 100 ML IV ONE (03:22)
--- NOTE | 2025-03-29 05:14 | DVH ---
Bilateral lower extremity venous duplex Clinical History: pain Comparison: LT LOWER DVT on DOS: 07/22/22, LLDVT on DOS: 07/22/22 Technique: Duplex Doppler evaluation of the deep venous systems of both lower extremities from the common femora l veins to the popliteal veins including color Doppler and spectral/pulsed waveform analysis was perf ormed. Findings: RIGHT SIDE: The common femoral vein demonstrates appropriate compressibility and waveform variability. There is compressibility/patency of the great saphenous vein at the proximal thigh. The femoral vein demonstrates appropriate compressibility and waveform variability. The deep femoral vein demonstrates appropriate compressibility and waveform variability. The popliteal vein demonstrates appropriate compressibility and waveform variability. There is normal compressibility at the tibioperoneal trunk. LEFT SIDE: The common femoral vein demonstrates appropriate compressibility and waveform variability. There is compressibility/patency of the great saphenous vein at the proximal thigh. The femoral vein demonstrates appropriate compressibility and waveform variability. The deep femoral vein demonstrates appropriate compressibility and waveform variability. The popliteal vein demonstrates appropriate compressibility and waveform variability. There is normal compressibility at the tibioperoneal trunk. Impression: No right or left femoropopliteal venous thrombosis.
[2025-03-29 09:03] LABS: Urine Protein, UAD Negative (Negative)
[2025-03-29 09:04] LABS: Urine WBC Clumps <1 /hpf (None Seen)
[2025-03-29] MEDS: CEFEPIME 1GM/50ML 50 ML IV SCH (10:50)
[2025-03-29] MEDS ORDERED: ONDANSETRON HCL 4 MG/2 ML VIAL IV PRN (11:15)
[2025-03-29] MEDS ORDERED: DEXTROSE (50%) 50ML SYRG IV PRN (11:15)
[2025-03-29] MEDS ORDERED: GABA-339 PO (11:19)
--- NOTE | 2025-03-29 11:30 | DVHHP2 ---
History of Present Illness Reason for Visit: Flu like symptoms History of Present Illness Stacy Chatman is an 85-year-old female with past medical history of diabetes, hypertension, hyperlipidemia, GERD, and arthritis, who came to the hospital for flu like symptoms. Patient states she has been experiencing flu like symptoms including body aches, fever, malaise, and chills, for the last 3 days with them worsening prompting her to come to the hospital. She began having diarrhea yesterday. Cardiovascular: HTN, hyperipidemia GI: GERD Musculoskeletal: Osteoarthritis Endocrine: Diabetes Past Surgical History: Cholecystectomy, Mastectomy (left) Smoke: No ALCOHOL: none Drugs: None Lives: with Family Domestic Violence: Neg Review of Systems Constitutional: Yes: Fever, Sweats, Weakness, Malaise; No: Chills, Other Eyes: No: Pain, Vision change, Conjunctivae inflammation, Eyelid inflammation, Other, Redness ENT: No: Ear pain, Ear discharge, Nose pain, Nose discharge, Nose congestion, Mouth pain, Mouth swelling, Throat pain, Throat swelling, Other Respiratory: No: Cough, Dry, Shortness of breath, SOB with excertion, Wheezing, Hemoptysis, Pleuritic Pain, Sputum, Wheezing, Other Cardiovascular: No: Chest Pain, Palpitations, Orthopnea, Paroxysmal Noc. Dyspnea, Edema, Lt Headedness, Other Gastrointestinal: No: Nausea, Vomiting, Abdominal Pain, Diarrhea, Constipation, Melena, Hematochezia, Other Genitourinary: No Dysuria, No Frequency, No Incontinence, No Hematuria, No Retention, No Other Musculoskeletal: No: other, neck pain, shoulder pain, arm pain, back pain, hand pain, leg pain, foot pain Skin: No: Rash, Lesions, Jaundice, Bruising, Other Neurological: No: Weakness, Numbness, Incoordination, Change in speech, Confusion, Seizures, Other Allergies: Coded Allergies: NO KNOWN ALLERGIES (Unverified , 03/29/25) Medications Current Medications Medications Dose Ordered Sig/Ventura Route Start Time Stop Time Status Last Admin Dose Admin Cefepime HCl 50 ml @ 12.5 mls/hr Q12HR IV 03/29/25 10:00 03/29/25 10:50 12.5 MLS/HR Acetaminophen/ Hydrocodone Bitart 1 tab Q4HP PRN PO 03/29/25 11:15 UNV Ondansetron HCl 4 mg Q4HP PRN IV 03/29/25 11:15 UNV Docusate Sodium 100 mg BIDPRN PRN PO 03/29/25 11:15 UNV Acetaminophen 650 mg Q6HP PRN PO 03/29/25 11:15 UNV Diagnostic Test (Pha) 1 strip ACHS 03/29/25 11:30 UNV Insulin Human Regular HS SC 03/29/25 22:00 UNV Insulin Human Regular AC SC 03/29/25 11:30 UNV Dextrose 50 ml UD PRN IV 03/29/25 11:15 UNV Exam Vital Signs Vital Signs Date Time Temp Pulse Resp B/P (MAP) Pulse Ox O2 Delivery O2 Flow Rate FiO2 03/29/25 07:30 96 18 92 Room Air* 0 21 03/29/25 07:30 98.1 104/44 (64) 98.1 General Appearance: Alert, Oriented X3, Cooperative, moderate distress, Other (body aches) HEENT: Atraumatic, PERRLA Respiratory: Clear to auscultation, Normal air movement Cardiovascular: Regular rate, Normal S1, Normal S2, No murmurs Abdominal: Normal bowel sounds, Soft, No tenderness, No hepatospenomegaly Extremities: No clubbing, No cyanosis, No edema, Normal pulses Skin: No rashes, No breakdown, No significant lesion Neuro: Normal speech, Other (weakness) Psych/Mental Status: Mental status NL Labs/Xrays Labs Test 03/29/25 02:00 03/28/25 23:25 03/28/25 22:28 03/28/25 20:23 Range/Units Influenza Type A Antigen Negative Negative Influenza Type B Antigen Negative Negative SARS-CoV-2 Antigen (Rapid) Negative NEGATIVE Troponin I High Sensitivity < 3 L </=34 ng/L Lactic Acid Level 2.0 0.4-2.0 mmol/L White Blood Count 6.4 4.4-10.8 10^3/uL Red Blood Count 5.16 4.0-5.20 10^6/uL Hemoglobin 13.6 12.2-16.2 g/dL Hematocrit 41.3 36.0-46.0 % Mean Corpuscular Volume 79.9 L 80.0-100.0 fL Mean Corpuscular Hemoglobin 26.3 L 28.0-32.0 pg Mean Corpuscular Hemoglobin Concent 33.0 32.0-36.0 g/dL Red Cell Distribution Width 20.7 H 11.8-14.3 % Platelet Count 235 140-450 10^3/uL Mean Platelet Volume 8.8 6.9-10.8 fL Neutrophils (%) (Auto) 86.0 H 37.0-80.0 % Lymphocytes (%) (Auto) 8.4 L 10.0-50.0 % Monocytes (%) (Auto) 3.9 0.0-12.0 % Eosinophils (%) (Auto) 0.9 0.0-7.0 % Basophils (%) (Auto) 0.8 0.0-2.0 % Neutrophils # (Auto) 5.5 1.6-8.6 10 ^3/uL Lymphocytes # (Auto) 0.5 0.4-5.4 10 ^3/uL Monocytes # (Auto) 0.2 0-1.3 10 ^3/uL Eosinophils # (Auto) 0.1 0-0.8 10 ^3/uL Basophils # (Auto) 0.1 0-0.2 10 ^3/uL Nucleated Red Blood Cells 0.1 % Prothrombin Time 11.0 9.3-11.8 sec Prothrombin Time INR 1.04 0.9-1.15 Activated Partial Thromboplast Time 24.0 L 24.5-34.5 SEC Sodium Level 137 136-145 mmol/L Potassium Level 4.3 3.5-5.1 mmol/L Chloride Level 103 98-107 mmol/L Carbon Dioxide Level 23 20-31 mmol/L Anion Gap 11 5-15 Blood Urea Nitrogen 19 9-23 mg/dL Creatinine 0.84 0.550-1.02 mg/dL Glomerular Filtration Rate Calc 69 >90 mL/min BUN/Creatinine Ratio 22.6 H 10.0-20.0 Serum Glucose 244 H 74-106 mg/dL Calcium Level 8.9 8.7-10.4 mg/dL Magnesium Level 1.4 L 1.6-2.6 mg/dL Total Bilirubin 0.4 0.2-1.0 mg/dL Aspartate Amino Transferase (AST) 13 13-40 U/L Alanine Aminotransferase (ALT) 16 7-40 U/L Alkaline Phosphatase 80 46-116 U/L B-Type Natriuretic Peptide 28.21 0-100 pg/mL Total Protein 6.8 5.7-8.2 g/dL Albumin 4.4 3.2-4.8 g/dL Test 03/28/25 08:34 Range/Units Urine Color Light-yellow Yellow Urine Clarity Clear Clear Urine pH 5.5 5.0-9.0 Urine Specific [place] 1.014 1.001-1.035 Urine Protein Negative Negative Urine Ketones Negative Negative Urine Blood Negative Negative /uL Urine Nitrite Negative Negative Urine Bilirubin Negative Negative Urine Urobilinogen Normal Negative mg/dL Urine Leukocyte Esterase Negative Negative /uL Urine RBC None seen 0 - 4 /hpf Urine WBC Clumps <1 None Seen /hpf Urine Microscopic WBC < 1 0-5 /HPF Urine Squamous Epithelial Cells Few <5 /hpf Urine Bacteria None seen None Seen /hpf Urine Glucose 2+ H Normal mg/dL EXAM: XY CHEST PORTABLE FINDINGS/IMPRESSION: LUNGS: No pleural effusion, consolidation, or pneumothorax MEDIASTINUM: Unremarkable BONES: No acute osseous abnormality OTHER: Surgical clips along the left lateral chest . Additional surgical clips in the right upper quadrant. Bilateral lower extremity venous duplex Findings: RIGHT SIDE: The common femoral vein demonstrates appropriate compressibility and waveform variability. There is compressibility/patency of the great saphenous vein at the proximal thigh. The femoral vein demonstrates appropriate compressibility and waveform variability. The deep femoral vein demonstrates appropriate compressibility and waveform variability. The popliteal vein demonstrates appropriate compressibility and waveform variability. There is normal compressibility at the tibioperoneal trunk. LEFT SIDE: The common femoral vein demonstrates appropriate compressibility and waveform variability. There is compressibility/patency of the great saphenous vein at the proximal thigh. The femoral vein demonstrates appropriate compressibility and waveform variability. The deep femoral vein demonstrates appropriate compressibility and waveform variability. The popliteal vein demonstrates appropriate compressibility and waveform variability. There is normal compressibility at the tibioperoneal trunk. Impression: No right or left femoropopliteal venous thrombosis. SEPSIS Sepsis Screen Date sepsis recognized/suspect: Mar 29, 2025 Time Sepsis recognized/suspect: 0124 Recent Procedure: No On Antibiotic Therapy: No Respiratory Rate >20: No Heart Rate >90: No Temp<36 C (96.8 F) or >38.3 C: No SBP <90 or MAP <65 mmHG: No New Acute Mental Status Change: No Is the patient on CPAP, BIPAP,: No Physician Orders Bilat Lower Dvt (03/29/25 04:34) Admit (03/29/25 11:10) Code Status (03/29/25 11:10) 2 Gm Sodium Diet (03/29/25 Lunch) Hydrocodone-Acet 5/325mg Tab ([place] (03/29/25 11:15) Ondansetron Hcl (Zofran) (03/29/25 11:15) Docusate Sodium Capsule (Colace Capsule) (03/29/25 11:15) Complete Blood Count (03/30/25 04:00) Comprehensive Metabolic Panel (03/30/25 04:00) Pt Request For Service (03/29/25 11:10) Condition: Serious (03/29/25 11:10) Acetaminophen Tablet (Tylenol Tablet) (03/29/25 11:15) Glucose Blood (Accu-Chek Comfort Curve T (03/29/25 11:30) Bedtime Insulin Scale (03/29/25 22:00) Moderate Insulin Ss (03/29/25 11:30) Dextrose 50% Syringe (03/29/25 11:15) Magnesium (03/29/25 11:10) Potassium (03/29/25 11:10) Rivaroxaban Tablet (Xarelto Tablet) (03/30/25 10:00) (Nf) Anastrozole (03/30/25 10:00) (Nf) Sitagliptin Phosphate (Januvia) (03/30/25 10:00) (Nf) Gabapentin (03/29/25 14:00) Vital Signs Date Time Temp Pulse Resp B/P (MAP) Pulse Ox O2 Delivery O2 Flow Rate FiO2 03/29/25 07:30 96 18 92 Room Air* 0 21 03/29/25 07:30 98.1 96 18 104/44 (64) 92 98.1 03/29/25 05:10 98.1 78 20 125/87 (100) 97 98.1 Medications Medications Dose Ordered Sig/Ventura Route Start Time Stop Time Status Last Admin Dose Admin Cefepime HCl 50 ml @ 12.5 mls/hr Q12HR IV 03/29/25 10:00 03/29/25 10:50 12.5 MLS/HR Assessment/Plan Assessment/Plan Assessment: Flu-like symptoms, Hypomagnesium, Hyperglycemia, Lactic acidosis, Uncontrolled diabetes, Hypertension, Hyperlipidemia, Plan: Admit to Med-Surg, IV antibiotics, IV hydration, Mange/Monitor electrolytes closely, A1c, Accu checks Q AC&HS with sliding scale, Home medications reconciled, Plan discussed with: Patient My Orders Orders - AILYN SHARMA Procedure Category Date Status Time Admit ADMIT 03/29/25 Transmitted 11:10 Code Status CODE 03/29/25 Transmitted 11:10 2 Gm Sodium Diet DIET 03/29/25 Transmitted Lunch Hydrocodone-Acet PHA 03/29/25 Logged 5/325mg Tab ([place] 11:15 Ondansetron Hcl PHA 03/29/25 Transmitted (Zofran) 11:15 Docusate Sodium PHA 03/29/25 Transmitted Capsule (Colace 11:15 Complete Blood Count LAB 03/30/25 Verified 04:00 Comprehensive LAB 03/30/25 Verified Metabolic Panel 04:00 Pt Request For Service PT 03/29/25 Logged 11:10 Condition: Serious ESTHER 03/29/25 In Process 11:10 Acetaminophen Tablet PHA 03/29/25 Transmitted (Tylenol Tablet) 11:15 Glucose Blood PHA 03/29/25 Transmitted (Accu-Chek Comfort 11:30 Bedtime Insulin Scale PHA 03/29/25 Transmitted 22:00 Moderate Insulin Ss PHA 03/29/25 Transmitted 11:30 Dextrose 50% Syringe PHA 03/29/25 Transmitted 11:15 Magnesium LAB 03/29/25 Logged 11:10 Potassium LAB 03/29/25 Logged 11:10 Rivaroxaban Tablet PHA 03/30/25 Transmitted (Xarelto Tablet) 10:00 (Nf) Anastrozole PHA 03/30/25 Transmitted 10:00 (Nf) Sitagliptin PHA 03/30/25 Transmitted Phosphate (Januvia) 10:00 (Nf) Gabapentin PHA 03/29/25 Transmitted 14:00 Date of Service: Mar 29, 2025 Billing Provider: AILYN SHARMA Common Visit Codes: [id number] INP/OBS CARE (MOD) AILYN SHARMA Mar 29, 2025 11:30
[2025-03-29 12:01] LABS: Potassium 3.8 mmol/L (3.5-5.1)
[2025-03-29 12:08] LABS: Magnesium 1.6 mg/dL (1.6-2.6)
[2025-03-29] MEDS: ACCU-CHEK COMFORT CURVE STRIP VI SCH (12:54)
[2025-03-29] MEDS: InsuLIN REG 1unit/0.01ml Soln (100units/ml) SC SCH ×2 (13:01→22:00)
[2025-03-29] MEDS: GABAPENTIN 300 MG CAP PO SCH (14:09)
[2025-03-29] MEDS ORDERED: PREG50CA PO (15:36)
[2025-03-29] MEDS ORDERED: INSU1INJ19 SC (15:36)
[2025-03-29] MEDS ORDERED: HYDR-4902 PO (15:36)
[2025-03-29] MEDS: ACETAMINOPHEN 325 MG TAB PO PRN (16:26)
[2025-03-29] MEDS: MAGNESIUM SULFATE 1GM/100ML 200 ML IV ONE (18:14)
[2025-03-29] MEDS: MAGNESIUM SULFATE 1GM/100ML 100 ML IV SCH (18:14)
[2025-03-30 05:00] VITALS: BP 113/51; PULSE 88; RESP 20; TEMP 98.3; O2SAT 96
[2025-03-30 06:43] LABS: Hemoglobin 11.9 g/dL (12.2-16.2)
[2025-03-30 06:46] LABS: Hematocrit 35.6 % (36.0-46.0); Mean Corpuscular Hemoglobin 26.8 pg (28.0-32.0); Mean Corpuscular Volume 80.4 fL (80.0-100.0); Nucleated Red Blood Cells % 0.0 %
[2025-03-30 07:08] LABS: Alanine Aminotransferase 14 U/L (7-40); Alkaline Phosphatase 69 U/L (46-116); Anion Gap 6 (5-15); BUN/Creatinine Ratio 14.9 (10.0-20.0); Blood Urea Nitrogen 10 mg/dL (9-23); Carbon Dioxide 25 mmol/L (20-31); Magnesium 2.1 mg/dL (1.6-2.6); Potassium 3.9 mmol/L (3.5-5.1); Sodium 138 mmol/L (136-145); Total Protein 5.8 g/dL (5.7-8.2)
[2025-03-30 07:09] LABS: Albumin 3.6 g/dL (3.2-4.8); Bilirubin, Total 0.3 mg/dL (0.2-1.0); Calcium 7.6 mg/dL (8.7-10.4); Chloride 107 mmol/L (98-107); Glucose 253 mg/dL (74-106)
[2025-03-30 08:00] VITALS: PULSE 70; RESP 19; O2SAT 96
[2025-03-30 08:42] VITALS: BP 98/65; PULSE 70; RESP 19; TEMP 98; O2SAT 96
[2025-03-30] MEDS: SITAGLIPTIN 50 MG PO SCH (10:00)
[2025-03-30] MEDS: RIVAROXABAN 20 MG TAB PO SCH (10:08)
[2025-03-30] MEDS: HYDROcodone-ACET 5/325MG TAB PO PRN (10:08)
[2025-03-30 12:53] VITALS: BP 101/62; PULSE 97; RESP 18; TEMP 98.5; O2SAT 95
--- NOTE | 2025-03-30 13:06 | DVHPN2 ---
Reviewed: Care Plan, H&P, Labs, Medications, Previous Orders, Radiology Changes from previous H/P or p: No Changes Eyes: No Pain, No Vision change, No Conjunctivae inflammation, No Eyelid inflammation, No Other, No Redness ENT: No Ear pain, No Ear discharge, No Nose pain, No Nose discharge, No Nose congestion, No Mouth pain, No Mouth swelling, No Throat pain, No Throat swelling, No Other Cardiovascular: No Chest Pain, No Palpitations, No Orthopnea, No Paroxysmal Noc. Dyspnea, No Edema, No Lt Headedness, No Other Respiratory: No Cough, No Dry, No Shortness of breath, No SOB with excertion, No Wheezing, No Hemoptysis, No Pleuritic Pain, No Sputum, No Other Gastrointestinal: No Nausea, No Vomiting, No Abdominal Pain, No Diarrhea, No Constipation, No Melena, No Hematochezia, No Other Genitourinary: No Dysuria, No Frequency, No Incontinence, No Hematuria, No Retention, No Other Musculoskeletal: No other, No neck pain, No shoulder pain, No arm pain, No back pain, No hand pain, No leg pain, No foot pain Skin: No Rash, No Lesions, No Jaundice, No Bruising, No Other Objective Vitals Vital Signs Date Time Temp Pulse Resp B/P (MAP) Pulse Ox O2 Delivery O2 Flow Rate FiO2 03/30/25 12:53 98.5 97 18 101/62 (75) 95 98.5 03/29/25 20:00 Room Air* 0 21 Intake/Output Intake and Output 03/30/25 07:00 Intake Total 900 ml Balance 900 ml Intake Oral 900 ml # Voids 6 Medications Current Medications Medications Dose Ordered Sig/Ventura Route Start Time Stop Time Status Last Admin Dose Admin Cefepime HCl 50 ml @ 12.5 mls/hr Q12HR IV 03/29/25 10:00 03/30/25 10:05 12.5 MLS/HR Acetaminophen/ Hydrocodone Bitart 1 tab Q4HP PRN PO 03/29/25 11:15 03/30/25 10:08 1 TAB Ondansetron HCl 4 mg Q4HP PRN IV 03/29/25 11:15 Docusate Sodium 100 mg BIDPRN PRN PO 03/29/25 11:15 Acetaminophen 650 mg Q6HP PRN PO 03/29/25 11:15 03/29/25 16:26 650 MG Diagnostic Test (Pha) 1 strip ACHS 03/29/25 11:30 03/30/25 11:28 1 STRIP Insulin Human Regular HS SC 03/29/25 22:00 03/29/25 22:00 4 UNITS Insulin Human Regular AC SC 03/29/25 11:30 03/30/25 11:28 6 UNITS Dextrose 50 ml UD PRN IV 03/29/25 11:15 Rivaroxaban 20 mg DAILY PO 03/30/25 10:00 03/30/25 10:08 20 MG Patient Own Medication 1 tab DAILY PO 03/30/25 10:00 Patient Own Medication 1 tab DAILY PO 03/30/25 10:00 Gabapentin 600 mg TID PO 03/29/25 14:00 03/30/25 06:43 600 MG Laboratory Results Laboratory Tests 03/30/25 06:19 Chemistry Test 03/30/25 06:19 Albumin 3.6 g/dL (3.2-4.8) Calcium Level 7.6 mg/dL (8.7-10.4) L Magnesium Level 2.1 mg/dL (1.6-2.6) Total Protein 5.8 g/dL (5.7-8.2) LFT Test 03/30/25 06:19 Alanine Aminotransferase (ALT) 14 U/L (7-40) Alkaline Phosphatase 69 U/L (46-116) Aspartate Amino Transferase (AST) 18 U/L (13-40) Total Bilirubin 0.3 mg/dL (0.2-1.0) HgA1c, TSH Test 03/29/25 14:50 Hemoglobin A1c 10.0 % A1C (<5.7) H Urinalysis Test 03/28/25 08:34 Urine Color Light-yellow (Yellow) Urine Clarity Clear (Clear) Urine pH 5.5 (5.0-9.0) Urine Specific [place] 1.014 (1.001-1.035) Urine Protein Negative (Negative) Urine Ketones Negative (Negative) Urine Blood Negative /uL (Negative) Urine Nitrite Negative (Negative) Urine Bilirubin Negative (Negative) Urine Urobilinogen Normal mg/dL (Negative) Urine Leukocyte Esterase Negative /uL (Negative) Urine RBC None seen /hpf (0 - 4) Urine WBC Clumps <1 /hpf (None Seen) Urine Microscopic WBC < 1 /HPF (0-5) Urine Squamous Epithelial Cells Few /hpf (<5) Urine Bacteria None seen /hpf (None Seen) Urine Glucose 2+ mg/dL (Normal) H Microbiology Microbiology Date/Time Source Procedure Growth Status 03/28/25 20:30 Blood Blood Culture - Preliminary NO GROWTH AFTER 24 HOURS OF INCUBATION. Resulted Labs and/or images reviewed: Labs reviewed by me, Image(s) reviewed by me Assessment/Plan Assessment/Plan Flu-like symptoms, Possible Community-acquired pneumonia Gram-positive versus Gram-negative: Cefepime Hypomagnesium, Hyperglycemia, Lactic acidosis, Uncontrolled diabetes, Hypertension, Hyperlipidemia, GERD COVID test negative Flu test neg Chest x-ray negative On Xarelto Time Spent 70 minutes Advanced care planning time 20 minutes Patient is full code Plan discussed with: Patient Date of Service: Mar 30, 2025 Billing Provider: Monique Common Visit Codes: [id number] CARE 30-74 MIN MARY VIEIRA MD Mar 30, 2025 13:06
[2025-03-30 17:00] VITALS: BP 104/62; PULSE 78; RESP 18; TEMP 98.3; O2SAT 96
[2025-03-30 20:49] VITALS: BP 128/76; PULSE 87; RESP 18; TEMP 97.9; O2SAT 97
[2025-03-31] VITALS (7 sets, daily range): BP systolic 102–120; BP diastolic 58–74; PULSE 74–82; RESP 17–19; TEMP 97.8–98.7; O2SAT 93–97
--- NOTE | 2025-03-31 08:42 | DVHPN2 ---
Reviewed: Care Plan, H&P, Labs, Medications, Previous Orders, Radiology Changes from previous H/P or p: No Changes Eyes: No Pain, No Vision change, No Conjunctivae inflammation, No Eyelid inflammation, No Other, No Redness ENT: No Ear pain, No Ear discharge, No Nose pain, No Nose discharge, No Nose congestion, No Mouth pain, No Mouth swelling, No Throat pain, No Throat swelling, No Other Cardiovascular: No Chest Pain, No Palpitations, No Orthopnea, No Paroxysmal Noc. Dyspnea, No Edema, No Lt Headedness, No Other Respiratory: No Cough, No Dry, No Shortness of breath, No SOB with excertion, No Wheezing, No Hemoptysis, No Pleuritic Pain, No Sputum, No Other Gastrointestinal: No Nausea, No Vomiting, No Abdominal Pain, No Diarrhea, No Constipation, No Melena, No Hematochezia, No Other Genitourinary: No Dysuria, No Frequency, No Incontinence, No Hematuria, No Retention, No Other Musculoskeletal: No other, No neck pain, No shoulder pain, No arm pain, No back pain, No hand pain, No leg pain, No foot pain Skin: No Rash, No Lesions, No Jaundice, No Bruising, No Other Objective Vitals Vital Signs Date Time Temp Pulse Resp B/P (MAP) Pulse Ox O2 Delivery O2 Flow Rate FiO2 03/31/25 05:00 97.9 76 18 106/74 (85) 93 97.9 03/30/25 20:00 Room Air* 0 21 Intake/Output Intake and Output 03/31/25 07:00 Intake Total 650 ml Balance 650 ml Intake Oral 600 ml IV Total 50 ml # Voids 6 Medications Current Medications Medications Dose Ordered Sig/Ventura Route Start Time Stop Time Status Last Admin Dose Admin Cefepime HCl 50 ml @ 12.5 mls/hr Q12HR IV 03/29/25 10:00 03/30/25 21:28 12.5 MLS/HR Acetaminophen/ Hydrocodone Bitart 1 tab Q4HP PRN PO 03/29/25 11:15 03/30/25 10:08 1 TAB Ondansetron HCl 4 mg Q4HP PRN IV 03/29/25 11:15 Docusate Sodium 100 mg BIDPRN PRN PO 03/29/25 11:15 Acetaminophen 650 mg Q6HP PRN PO 03/29/25 11:15 03/30/25 21:28 650 MG Diagnostic Test (Pha) 1 strip ACHS 03/29/25 11:30 03/31/25 06:20 1 STRIP Insulin Human Regular HS SC 03/29/25 22:00 03/30/25 21:39 4 UNITS Insulin Human Regular AC SC 03/29/25 11:30 03/31/25 06:24 6 UNITS Dextrose 50 ml UD PRN IV 03/29/25 11:15 Rivaroxaban 20 mg DAILY PO 03/30/25 10:00 03/30/25 10:08 20 MG Patient Own Medication 1 tab DAILY PO 03/30/25 10:00 Patient Own Medication 1 tab DAILY PO 03/30/25 10:00 Gabapentin 600 mg TID PO 03/29/25 14:00 03/31/25 06:18 600 MG Laboratory Results Laboratory Tests 03/30/25 06:19 Urinalysis Test 03/28/25 08:34 Urine Color Light-yellow (Yellow) Urine Clarity Clear (Clear) Urine pH 5.5 (5.0-9.0) Urine Specific [place] 1.014 (1.001-1.035) Urine Protein Negative (Negative) Urine Ketones Negative (Negative) Urine Blood Negative /uL (Negative) Urine Nitrite Negative (Negative) Urine Bilirubin Negative (Negative) Urine Urobilinogen Normal mg/dL (Negative) Urine Leukocyte Esterase Negative /uL (Negative) Urine RBC None seen /hpf (0 - 4) Urine WBC Clumps <1 /hpf (None Seen) Urine Microscopic WBC < 1 /HPF (0-5) Urine Squamous Epithelial Cells Few /hpf (<5) Urine Bacteria None seen /hpf (None Seen) Urine Glucose 2+ mg/dL (Normal) H Microbiology Microbiology Date/Time Source Procedure Growth Status 03/28/25 20:30 Blood Blood Culture - Preliminary NO GROWTH AFTER 48 HOURS OF INCUBATION. Resulted Labs and/or images reviewed: Labs reviewed by me, Image(s) reviewed by me Assessment/Plan Assessment/Plan Flu-like symptoms, Possible Community-acquired pneumonia Gram-positive versus Gram-negative: Cefepime, blood cultures negative Hypomagnesium, Hyperglycemia, Lactic acidosis, Uncontrolled diabetes, Hypertension, Hyperlipidemia, GERD COVID test negative Flu test neg Chest x-ray negative On Xarelto for history of DVT DVT ruled out during this visit Time Spent 50 minutes Advanced care planning time 20 minutes Patient is full code Plan discussed with: Patient Date of Service: Mar 31, 2025 Billing Provider: MARY VIEIRA MD Common Visit Codes: [id number] INP/OBS CARE(HIGH) MARY VIEIRA MD Mar 31, 2025 08:42
[2025-04-01] VITALS (8 sets, daily range): BP systolic 100–116; BP diastolic 56–67; PULSE 72–89; RESP 16–18; TEMP 97.4–97.9; O2SAT 91–96
--- NOTE | 2025-04-01 02:10 | DVHSR ---
APPROVED REPORT EXAM: Two-dimensional and M-mode echocardiogram with Doppler and color Doppler. Blood Pressure: 101/62 mmHg INDICATION Possible CHF RISK FACTORS Height: 65, Weight: 156 DIMENSIONS LVDd3.9 (3.8-5.7cm)LA (2D)5.1 (1.9-4.0cm)Aortic Root (2.0-3.7cm) LVDs2.8 (2.5-4.0cm)LA (MM) (1.9-4.0cm)Aortic Cusp Exc1.5 (1.5-2.0cm) EF (%) 56.0 (55-70%)Rt. Atrium4.2 (1.9-4.0cm)Asc. Aorta cm Mitral Valve MitralMitral Stenosis E wave0.40m/sMV Mean GR.mmHg A wave0.78m/sMV Peak GR.mmHg E/A ratio0.52D MVAcm2 DECEL [id number] 1/2 Timems Aortic Valve Aortic ValveAortic Stenosis V10.94m/Brayan Mean GR.5mmHg V21.52m/Brayan Peak GR.9mmHg LVOT Diameter1.5 (1.8-2.4cm)Doppler AVA1.09cm2 AI P 1/2 Htkz384.09ms Pulmonic Valve V20.89m/s Tricuspid Valve TR Velocity2.57m/s [id number] Conclusion MODERATE DEGREE LVH AND MODERATE DEGREE LV DIASTOLIC DYSFUNCTION LV EF IS 55% AND IS NORMAL MODERATELY DILATED RV,RA AND LA NORMAL VALVES NO EFFUSION
--- NOTE | 2025-04-01 08:22 | DVHPN2 ---
Reviewed: Care Plan, H&P, Labs, Medications, Previous Orders, Radiology Changes from previous H/P or p: No Changes Eyes: No Pain, No Vision change, No Conjunctivae inflammation, No Eyelid inflammation, No Other, No Redness ENT: No Ear pain, No Ear discharge, No Nose pain, No Nose discharge, No Nose congestion, No Mouth pain, No Mouth swelling, No Throat pain, No Throat swelling, No Other Cardiovascular: No Chest Pain, No Palpitations, No Orthopnea, No Paroxysmal Noc. Dyspnea, No Edema, No Lt Headedness, No Other Respiratory: No Cough, No Dry, No Shortness of breath, No SOB with excertion, No Wheezing, No Hemoptysis, No Pleuritic Pain, No Sputum, No Other Gastrointestinal: No Nausea, No Vomiting, No Abdominal Pain, No Diarrhea, No Constipation, No Melena, No Hematochezia, No Other Genitourinary: No Dysuria, No Frequency, No Incontinence, No Hematuria, No Retention, No Other Musculoskeletal: No other, No neck pain, No shoulder pain, No arm pain, No back pain, No hand pain, No leg pain, No foot pain Skin: No Rash, No Lesions, No Jaundice, No Bruising, No Other Objective Vitals Vital Signs Date Time Temp Pulse Resp B/P (MAP) Pulse Ox O2 Delivery O2 Flow Rate FiO2 04/01/25 05:01 97.9 82 18 116/67 (83) 96 97.9 03/31/25 20:00 Room Air* 0 21 Intake/Output Intake and Output 04/01/25 07:00 Intake Total 1290 ml Balance 1290 ml Intake Oral 1240 ml IV Total 50 ml # Voids 13 Medications Current Medications Medications Dose Ordered Sig/Ventura Route Start Time Stop Time Status Last Admin Dose Admin Cefepime HCl 50 ml @ 12.5 mls/hr Q12HR IV 03/29/25 10:00 03/31/25 21:01 12.5 MLS/HR Acetaminophen/ Hydrocodone Bitart 1 tab Q4HP PRN PO 03/29/25 11:15 03/31/25 13:59 1 TAB Ondansetron HCl 4 mg Q4HP PRN IV 03/29/25 11:15 Docusate Sodium 100 mg BIDPRN PRN PO 03/29/25 11:15 Acetaminophen 650 mg Q6HP PRN PO 03/29/25 11:15 04/01/25 05:02 650 MG Diagnostic Test (Pha) 1 strip ACHS 03/29/25 11:30 04/01/25 06:06 1 STRIP Insulin Human Regular HS SC 03/29/25 22:00 03/31/25 21:21 3 UNITS Insulin Human Regular AC SC 03/29/25 11:30 04/01/25 06:06 6 UNITS Dextrose 50 ml UD PRN IV 03/29/25 11:15 Patient Own Medication 1 tab DAILY PO 03/30/25 10:00 Gabapentin 600 mg TID PO 03/29/25 14:00 04/01/25 05:02 600 MG Patient Own Medication 1 tab HS PO 04/01/25 22:00 Laboratory Results Laboratory Tests 03/30/25 06:19 Urinalysis Test 03/28/25 08:34 Urine Color Light-yellow (Yellow) Urine Clarity Clear (Clear) Urine pH 5.5 (5.0-9.0) Urine Specific [place] 1.014 (1.001-1.035) Urine Protein Negative (Negative) Urine Ketones Negative (Negative) Urine Blood Negative /uL (Negative) Urine Nitrite Negative (Negative) Urine Bilirubin Negative (Negative) Urine Urobilinogen Normal mg/dL (Negative) Urine Leukocyte Esterase Negative /uL (Negative) Urine RBC None seen /hpf (0 - 4) Urine WBC Clumps <1 /hpf (None Seen) Urine Microscopic WBC < 1 /HPF (0-5) Urine Squamous Epithelial Cells Few /hpf (<5) Urine Bacteria None seen /hpf (None Seen) Urine Glucose 2+ mg/dL (Normal) H Microbiology Microbiology Date/Time Source Procedure Growth Status 03/28/25 20:30 Blood Blood Culture - Preliminary NO GROWTH AFTER 72 HOURS OF INCUBATION. Resulted Labs and/or images reviewed: Labs reviewed by me, Image(s) reviewed by me Assessment/Plan Assessment/Plan Flu-like symptoms, Possible Community-acquired pneumonia Gram-positive versus Gram-negative: Cefepime, blood cultures negative Hypomagnesium, Hyperglycemia, Lactic acidosis, Uncontrolled diabetes, Hypertension, Hyperlipidemia, GERD COVID test negative Flu test neg Chest x-ray negative On Xarelto for history of DVT DVT ruled out during this visit Time Spent 55 minutes Advanced care planning time 20 minutes Patient is full code Plan discussed with: Patient My Orders Orders - MARY VIEIRA MD Procedure Category Date Status Time (Nf) Anastrozole PHA 04/01/25 In Process 22:00 Date of Service: Apr 01, 2025 Billing Provider: MARY VIEIRA MD Common Visit Codes: [id number] INP/OBS CARE(HIGH) MARY VIEIRA MD Apr 01, 2025 08:22
[2025-04-02 05:00] VITALS: BP 110/54; PULSE 81; RESP 17; TEMP 98.2; O2SAT 98
[2025-04-02 08:00] VITALS: PULSE 75; RESP 18; O2SAT 96
--- NOTE | 2025-04-02 08:46 | MEDREC ---
[facility] Intervention Section I [facility] Intervention: Review courses of therapy (PER ATS/IDSA GUIDELINE FOR EMPIRIC TREATMENT OF NON-SEVERE COMMUNITY ACQUIRED PNEUMONIA, PLEASE CONSIDER CEFTRIAXONE + AZITHROMYCIN (OR DOXYCYCLINE) - ADD PSEUDOMONAS AERUGINOSA COVERAGE ONLY IN PATIENT WITH HISTORY OF P. AERUGINOSA INFECTION WITHIN 1 YEAR OR ADVANCED STRUCTURAL LUNG DISEASE ) NYA CARLIN PHARMACIST Apr 02, 2025 08:46
[2025-04-02 09:00] VITALS: BP 126/66; PULSE 75; RESP 20; TEMP 97.5; O2SAT 97
--- NOTE | 2025-04-02 09:32 | DVHPN2 ---
Reviewed: Care Plan, H&P, Labs, Medications, Previous Orders, Radiology Changes from previous H/P or p: No Changes Eyes: No Pain, No Vision change, No Conjunctivae inflammation, No Eyelid inflammation, No Other, No Redness ENT: No Ear pain, No Ear discharge, No Nose pain, No Nose discharge, No Nose congestion, No Mouth pain, No Mouth swelling, No Throat pain, No Throat swelling, No Other Cardiovascular: No Chest Pain, No Palpitations, No Orthopnea, No Paroxysmal Noc. Dyspnea, No Edema, No Lt Headedness, No Other Respiratory: No Cough, No Dry, No Shortness of breath, No SOB with excertion, No Wheezing, No Hemoptysis, No Pleuritic Pain, No Sputum, No Other Gastrointestinal: No Nausea, No Vomiting, No Abdominal Pain, No Diarrhea, No Constipation, No Melena, No Hematochezia, No Other Genitourinary: No Dysuria, No Frequency, No Incontinence, No Hematuria, No Retention, No Other Musculoskeletal: No other, No neck pain, No shoulder pain, No arm pain, No back pain, No hand pain, No leg pain, No foot pain Skin: No Rash, No Lesions, No Jaundice, No Bruising, No Other Objective Vitals Vital Signs Date Time Temp Pulse Resp B/P (MAP) Pulse Ox O2 Delivery O2 Flow Rate FiO2 04/02/25 05:00 98.2 81 17 110/54 (72) 98 98.2 04/01/25 20:00 Room Air* 0 21 Intake/Output Intake and Output 04/02/25 07:00 Intake Total 950 ml Balance 950 ml Intake Oral 900 ml IV Total 50 ml # Voids 8 Medications Current Medications Medications Dose Ordered Sig/[place] Route Start Time Stop Time Status Last Admin Dose Admin Acetaminophen/ Hydrocodone Bitart 1 tab Q4HP PRN PO 03/29/25 11:15 03/31/25 13:59 1 TAB Ondansetron HCl 4 mg Q4HP PRN IV 03/29/25 11:15 Docusate Sodium 100 mg BIDPRN PRN PO 03/29/25 11:15 Acetaminophen 650 mg Q6HP PRN PO 03/29/25 11:15 04/01/25 05:02 650 MG Diagnostic Test (Pha) 1 strip ACHS 03/29/25 11:30 04/02/25 05:50 1 STRIP Insulin Human Regular HS SC 03/29/25 22:00 04/01/25 21:15 3 UNITS Insulin Human Regular AC SC 03/29/25 11:30 04/02/25 05:56 6 UNITS Dextrose 50 ml UD PRN IV 03/29/25 11:15 Patient Own Medication 1 tab DAILY PO 03/30/25 10:00 Gabapentin 600 mg TID PO 03/29/25 14:00 04/02/25 05:49 600 MG Patient Own Medication 1 tab HS PO 04/01/25 22:00 04/01/25 21:02 1 TAB Ceftriaxone Sodium 50 ml @ 100 mls/hr DAILY@09 IV 04/03/25 09:00 UNV Azithromycin 250 ml @ 125 mls/hr DAILY IV 04/02/25 10:00 UNV Laboratory Results Laboratory Tests 03/30/25 06:19 Urinalysis Test 03/28/25 08:34 Urine Color Light-yellow (Yellow) Urine Clarity Clear (Clear) Urine pH 5.5 (5.0-9.0) Urine Specific [place] 1.014 (1.001-1.035) Urine Protein Negative (Negative) Urine Ketones Negative (Negative) Urine Blood Negative /uL (Negative) Urine Nitrite Negative (Negative) Urine Bilirubin Negative (Negative) Urine Urobilinogen Normal mg/dL (Negative) Urine Leukocyte Esterase Negative /uL (Negative) Urine RBC None seen /hpf (0 - 4) Urine WBC Clumps <1 /hpf (None Seen) Urine Microscopic WBC < 1 /HPF (0-5) Urine Squamous Epithelial Cells Few /hpf (<5) Urine Bacteria None seen /hpf (None Seen) Urine Glucose 2+ mg/dL (Normal) H Microbiology Microbiology Date/Time Source Procedure Growth Status 03/28/25 20:30 Blood Blood Culture - Preliminary NO GROWTH AFTER 72 HOURS OF INCUBATION. Resulted Labs and/or images reviewed: Labs reviewed by me, Image(s) reviewed by me Assessment/Plan Assessment/Plan Possible Community-acquired pneumonia Gram-positive versus Gram-negative: DC cefepime, start IV Rocephin IV azithromycin blood cultures negative Hypomagnesium, Hyperglycemia, Lactic acidosis, Uncontrolled diabetes, Hypertension, Hyperlipidemia, GERD COVID test negative Flu test neg Chest x-ray negative On Xarelto for history of DVT DVT ruled out during this visit Bilateral leg pains: Arterial ultrasound ordered, continue gabapentin 600 mg 3 times a day Time Spent 55 minutes Advanced care planning time 20 minutes Patient is full code Physical therapy ordered Daughter Keren at bedside HARMONY Ernst is the entertainment agent Plan discussed with: Patient My Orders Orders - MARY VIEIRA MD Procedure Category Date Status Time Ceftriaxone 1gm/50ml PHA 04/03/25 Logged D5w (Rocephin) 09:00 Azithromycin 500mg/ PHA 04/02/25 Logged 250ml (Zithromax 50 10:00 Ceftriaxone 1gm/50ml PHA 04/02/25 Logged D5w (Rocephin) 09:30 Vasc Arterial Gisselle US 04/02/25 Logged Complete 09:27 Date of Service: Apr 02, 2025 Billing Provider: MARY VIEIRA MD Common Visit Codes: [id number] INP/OBS CARE(HIGH) MARY VIEIRA MD Apr 02, 2025 09:32
[2025-04-02] MEDS: DOCUSATE SOD 100 MG CAP PO PRN (10:37)
[2025-04-02] MEDS: AZITHROMYCIN 500MG/ 250ML 250 ML IV SCH (11:20)
--- NOTE | 2025-04-02 11:45 | DVH ---
BILATERAL LOWER EXTREMITY ARTERIAL DOPPLER ULTRASOUND CLINICAL HISTORY: Bilateral leg pains, claudication TECHNIQUE: Multiple grayscale, color Doppler and spectral Doppler ultrasound images were obtained of bilateral lower extremities for evaluation of the peripheral arteries. COMPARISON: None FINDINGS: The common femoral (COMPOSITE LAMINATOR), upper deep femoral, superficial femoral (SFA), popliteal, posterior tibial (SCALP TREATMENT SPECIALIST), and dorsalis pedis arteries were evaluated on this exam. Grayscale images demonstrate no significant atherosclerotic plaque. Right: Color doppler images demonstrate no visible stenosis or occlusion. Spectral analysis demonstrates no rmal, high-resistive blood flow. Systolic acceleration is normal. No significant change in velocity to suggest high-grade stenosis. Velocities (in cm/sec): Common Femoral: 118 ; deep femoral: 45.1 ; proximal superficial femoral 80, mid 92, distal 71; poplit eal: 62 ; posterior tibial: 43; dorsalis pedis: 92 Left: Color doppler images demonstrate no visible stenosis or occlusion. Spectral analysis demonstrates no rmal, high-resistive blood flow. Systolic acceleration is normal. No significant change in velocity to suggest high-grade stenosis. Velocities (in cm/sec): Common Femoral: 102 ; deep femoral: 38.8 ; proximal superficial femoral 71.3, mid 75, distal 60.3; po pliteal: 59 ; posterior tibial: 25.5; dorsalis pedis: 64.7 IMPRESSION: Widely patent bilateral lower extremity arteries without evidence of hemodynamically significant sten osis or occlusion.
[2025-04-02 13:00] VITALS: BP 112/63; PULSE 80; RESP 18; TEMP 97.9; O2SAT 95
[2025-04-02 17:03] VITALS: BP 123/69; PULSE 82; RESP 17; TEMP 97.9; O2SAT 97
[2025-04-02 20:00] VITALS: PULSE 78; RESP 17; O2SAT 95
[2025-04-03 01:00] VITALS: BP 110/60; PULSE 79; RESP 17; TEMP 98.5; O2SAT 96
[2025-04-03 05:00] VITALS: BP 114/69; PULSE 79; RESP 17; TEMP 97.9; O2SAT 97
[2025-04-03 08:00] VITALS: PULSE 75; RESP 18; O2SAT 96
[2025-04-03] MEDS ORDERED: AZIT500T66 PO (08:31)
[2025-04-03] MEDS ORDERED: HYDR-4902 PO (08:31)
--- NOTE | 2025-04-03 08:39 | DVHDS2 ---
Discharge Summary Date of Admission Mar 29, 2025 at 11:10 Date of Discharge: Apr 03, 2025 Admitting Diagnosis Generalized weakness Wounds: None Labs/Diagnostic Data: Laboratory Results Test 04/03/25 06:06 03/30/25 06:19 03/29/25 14:50 03/29/25 02:00 POC Glucose 215 mg/dl (70-106) White Blood Count 4.0 10^3/uL (4.4-10.8) Red Blood Count 4.43 10^6/uL (4.0-5.20) Hemoglobin 11.9 g/dL (12.2-16.2) Hematocrit 35.6 % (36.0-46.0) Mean Corpuscular Volume 80.4 fL (80.0-100.0) Mean Corpuscular Hemoglobin 26.8 pg (28.0-32.0) Mean Corpuscular Hemoglobin Concent 33.4 g/dL (32.0-36.0) Red Cell Distribution Width 20.2 % (11.8-14.3) Platelet Count 157 10^3/uL (140-450) Mean Platelet Volume 8.6 fL (6.9-10.8) Neutrophils (%) (Auto) 63.3 % (37.0-80.0) Lymphocytes (%) (Auto) 20.8 % (10.0-50.0) Monocytes (%) (Auto) 13.2 % (0.0-12.0) Eosinophils (%) (Auto) 2.5 % (0.0-7.0) Basophils (%) (Auto) 0.2 % (0.0-2.0) Neutrophils # (Auto) 2.5 10 ^3/uL (1.6-8.6) Lymphocytes # (Auto) 0.8 10 ^3/uL (0.4-5.4) Monocytes # (Auto) 0.5 10 ^3/uL (0-1.3) Eosinophils # (Auto) 0.1 10 ^3/uL (0-0.8) Basophils # (Auto) 0 10 ^3/uL (0-0.2) Nucleated Red Blood Cells 0.0 % Sodium Level 138 mmol/L (136-145) Potassium Level 3.9 mmol/L (3.5-5.1) Chloride Level 107 mmol/L (98-107) Carbon Dioxide Level 25 mmol/L (20-31) Anion Gap 6 (5-15) Blood Urea Nitrogen 10 mg/dL (9-23) Creatinine 0.67 mg/dL (0.550-1.02) Glomerular Filtration Rate Calc 87 mL/min (>90) BUN/Creatinine Ratio 14.9 (10.0-20.0) Serum Glucose 253 mg/dL (74-106) Calcium Level 7.6 mg/dL (8.7-10.4) Magnesium Level 2.1 mg/dL (1.6-2.6) Total Bilirubin 0.3 mg/dL (0.2-1.0) Aspartate Amino Transferase (AST) 18 U/L (13-40) Alanine Aminotransferase (ALT) 14 U/L (7-40) Alkaline Phosphatase 69 U/L (46-116) B-Type Natriuretic Peptide 63.10 pg/mL (0-100) Total Protein 5.8 g/dL (5.7-8.2) Albumin 3.6 g/dL (3.2-4.8) Hemoglobin A1c 10.0 % A1C (<5.7) Influenza Type A Antigen Negative (Negative) Influenza Type B Antigen Negative (Negative) SARS-CoV-2 Antigen (Rapid) Negative (NEGATIVE) Test 03/28/25 23:25 03/28/25 22:28 03/28/25 20:23 03/28/25 08:34 Troponin I High Sensitivity < 3 ng/L (</=34) Lactic Acid Level 2.0 mmol/L (0.4-2.0) Prothrombin Time 11.0 sec (9.3-11.8) Prothrombin Time INR 1.04 (0.9-1.15) Activated Partial Thromboplast Time 24.0 SEC (24.5-34.5) Urine Color Light-yellow (Yellow) Urine Clarity Clear (Clear) Urine pH 5.5 (5.0-9.0) Urine Specific [place] 1.014 (1.001-1.035) Urine Protein Negative (Negative) Urine Ketones Negative (Negative) Urine Blood Negative /uL (Negative) Urine Nitrite Negative (Negative) Urine Bilirubin Negative (Negative) Urine Urobilinogen Normal mg/dL (Negative) Urine Leukocyte Esterase Negative /uL (Negative) Urine RBC None seen /hpf (0 - 4) Urine WBC Clumps <1 /hpf (None Seen) Urine Microscopic WBC < 1 /HPF (0-5) Urine Squamous Epithelial Cells Few /hpf (<5) Urine Bacteria None seen /hpf (None Seen) Urine Glucose 2+ mg/dL (Normal) Other Laboratory Tests 03/30/25 06:19 Brief Hx & Hospital Course: 85-year-old female with a history of diabetes hypertension hypercholesterolemia came in for generalized weakness and body pains. COVID test was negative flu test was negative chest x-ray was negative patient has a Xarelto for DVT of the bilateral lower extremities DVT ruled out during this visit found to have possible community-acquired pneumonia treated with the Rocephin azithromycin uncontrolled diabetes with a A1c 10.2 patient was educated about compliance with the diabetes medications the daughter at the bedside HARMONY Ernst is the supervisor sintering plant. The patient is already on high dose of gabapentin 600 mg p.o. 3 times daily diabetic peripheral neuropathy. With the patient's daughter and the patient was educated about the strict compliance with the diabetes medications to reduce the hemoglobin A1c level so that the peripheral neuropathy will improve. Patient wants to be discharged home on home health. Discharged. Prescription for [employer] and azithromycin transmitted to pharmacy reviewed all other home medications. The patient and the daughter declined SNF placement for rehab. Consults/Reason for consult None Operations or Procedures Arterial ultrasound Condition at Discharge: Fair Final Diagnosis/Problems List Assessment/Plan Possible Community-acquired pneumonia Gram-positive versus Gram-negative: DC cefepime, start IV Rocephin IV azithromycin blood cultures negative Hypomagnesium, Hyperglycemia, Lactic acidosis, Uncontrolled diabetes, Hypertension, Hyperlipidemia, GERD COVID test negative Flu test neg Chest x-ray negative On Xarelto for history of DVT DVT ruled out during this visit Bilateral leg pains: Peripheral arterial disease ruled out continue gabapentin 600 mg 3 times a day Discharge Disposition: Home with Health Services Discharge Instruct/Medications Diet: Consistent carbohydrate Activity: No Restrictions, As Tolerated Follow Up/Referral: Check blood sugar 3 times a day and take diabetes medications appropriately Continue all your previous home medications including gabapentin Use new medications [employer] and azithromycin as prescribed Medications: Azithromycin [employer] Transmitted to pharmacy Scheduled Anastrozole (Anastrozole), 1 TAB PO DAILY, (Reported) Azithromycin (Azithromycin), 1 TAB PO DAILY Gabapentin (Gabapentin), 1 TAB PO TID, (Reported) Glipizide (Glipizide), 5 MG PO DAILY, (Reported) Lisinopril (Lisinopril), 1 TAB PO DAILY, (Reported) Metformin Hydrochloride (Metformin Hcl), 1 TAB PO BID, (Reported) Pantoprazole Sodium Sesquihydr (Protonix), 40 MG PO DAILY, (Reported) Pregabalin (Lyrica), 1 CAP PO TID, (Reported) Rivaroxaban (Xarelto), 1 TAB PO DAILY, (Reported) Simvastatin (Simvastatin), 20 MG PO DAILY, (Reported) Sitagliptin Phosphate (Januvia), 1 TAB PO DAILY, (Reported) Scheduled PRN Hydrocodone-Acetaminophen (Hydrocodone Bitartrate/AC 5-325 mg), 1 TAB PO Q6HPRN PRN for PAIN SCALE 1 THRU 6, (Reported) Hydrocodone-Acetaminophen (Hydrocodone Bitartrate/AC 5-325 mg), 1 TAB PO QID PRN Ibuprofen Micronized (Ibuprofen), 400 MG PO Q8HPRN PRN Miscellaneous Medications Insulin Glargine (Basaglar Kwikpen), 100 UNIT SC, (Reported) Discontinued Medications Lidocaine (Lidoderm 5% Topical Patch), 1 PATCH TOP DAILY PRN 49 (Time taken for discharge summary 49 minutes) Discharge Statement: "Patient was advised to return to the ER or call 911 if any headaches, dizziness, shortness of breath, chest pain, abdominal pain, bleeding, fevers, or worsening of medical condition. Patient was counseled about treatment plan, medications, possible side effects, patientverbalized understanding. All questions were answered to the best of my ability. This discharge took greater then 30 minutes in planning, reviewing documentation, counseling the patient, and discussing with other team members." ASSESSMENT ASSESSMENT Hospital Course Improved Assessment Assessment/Plan Possible Community-acquired pneumonia Gram-positive versus Gram-negative: DC cefepime, start IV Rocephin IV azithromycin blood cultures negative Hypomagnesium, Hyperglycemia, Lactic acidosis, Uncontrolled diabetes, Hypertension, Hyperlipidemia, GERD COVID test negative Flu test neg Chest x-ray negative On Xarelto for history of DVT DVT ruled out during this visit Bilateral leg pains: Peripheral arterial disease ruled out continue gabapentin 600 mg 3 times a day Date of Service: Apr 03, 2025 Billing Provider: MARY VIEIRA MD Common Visit Codes: [id number] DISCH DAY >30min MARY VIEIRA MD Apr 03, 2025 08:39
== END 2025-04-03 11:05 | disposition home health service (06) | DRG 178 ==
LOC: ER 19:42 → OVERFLOW 03-29 11:10 → CENTRAL 03-29 15:00
PROVIDERS: ADMIT Family Medicine; ATTEND Family Medicine
DX: J15.69 Pneumonia due to other Gram-negative bacteria (principal); E87.20 Acidosis, unspecified; R65.10 Systemic inflammatory response syndrome (SIRS) of non-infectious origin without acute organ dysfunction; J15.9 Unspecified bacterial pneumonia; E11.65 Type 2 diabetes mellitus with hyperglycemia; Z20.822 Contact with and (suspected) exposure to COVID-19; E83.42 Hypomagnesemia; I10 Essential (primary) hypertension; K21.9 Gastro-esophageal reflux disease without esophagitis; G89.29 Other chronic pain; E78.00 Pure hypercholesterolemia, unspecified; E11.42 Type 2 diabetes mellitus with diabetic polyneuropathy; Z90.49 Acquired absence of other specified parts of digestive tract; Z79.899 Other long term (current) drug therapy; Z90.12 Acquired absence of left breast and nipple; Z86.718 Personal history of other venous thrombosis and embolism; Z85.3 Personal history of malignant neoplasm of breast
CPT/HCPCS: 36415; 71045; 80053; 81001; 82962; 83036; 83605; 83735; 83880; 84132; 84484; 85025; 85610; 85730; 87040; 87426; 87804; 93306; 93925; 93970; 96365; 97110; 97116; 97163; 97530; G0378; J1815